=== PATIENT | female | born 1995 | race Caucasian/White ===

== ENCOUNTER 2020-03-05 18:00 | Emergency (ER) | payer OTHER, SELFPAY ==
--- NOTE | ~2020-03-05 | XR_ITS ---
EXAMINATION: XR knee RT 3V EXAM DATE: 03/05/2020 18:37 INDICATION: Right knee swelling. Rule out osteomyelitis. TECHNIQUE: Three projections of the right knee. There is no prior study for comparison. FINDINGS: No evidence osteochondral defect or joint body in the right knee joint. There are no bon y erosions identified. There are no acute fractures or dislocations identified. There is no subcutan eous gas. There is large amount of nonspecific joint fluid. This is most commonly sterile effusion. Possible u nderlying etiologies include reactive from arthritis, overuse, or trauma. Hemarthrosis and septic ef fusion are not radiographically excludable. Some surrounding subcutaneous edema. Please clinically co rrelate. There are no radiopaque foreign bodies. IMPRESSION: 1. Large amount of nonspecific right knee joint fluid. If septic joint is clinically suspected consid er aspiration. 2. No demineralization or other osseous change to suggest osteomyelitis. Reviewed, dictated and finalized at location A. IMPRESSION: 1. Large amount of nonspecific right knee joint fluid. If septic joint is clini kate suspected consider aspiration. 2. No demineralization or other osseous change to suggest osteomyelitis.
[2020-03-05 18:15] VITALS: BP 127/72; PULSE 103; RESP 20; TEMP 37.6; O2SAT 100
--- NOTE | 2020-03-05 18:28 | ED.GENADULT ---
HPI - General Adult General Chief complaint: Extremity Injury, Lower Stated complaint: right knee pain Time Seen by Provider: 03/05/20 18:22 Source: patient and RN notes reviewed Mode of arrival: ambulatory Limitations: no limitations History of Present Illness HPI narrative: Patient presents today complaining of swelling to the right knee x4 days. Denies any injury or trauma. States she had a similar episode a few weeks ago that resolved on its own. She does report some intermittent tingling to the lower leg, but none currently present. She currently rates her pain 7/10 and has been taking Tylenol and ibuprofen with some relief. Patient uses IV drugs and has been shooting into her lower leg veins. Last episode of IV drug use was approximately 3 weeks ago. MD complaint: Right knee swelling Related Data Home Medications Medication Instructions Recorded Confirmed albuterol sulfate [ProAir HFA] INHALATION 03/05/20 fenofibrate nanocrystallized mg PO 03/05/20 Allergies Allergy/AdvReac Type Severity Reaction Status Date / Time No Known Allergies Allergy Verified 03/10/19 15:53 Review of Systems Review of Systems: Narrative: CONSTITUTIONAL: Denies body aches, fever, chills, or sweats. EYES: Denies visual changes, redness, or discharge. ENT: Denies rhinorrhea, congestion, sore throat, or otalgia. CARDIOVASCULAR: Denies chest pain, palpitations, or edema. RESPIRATORY: Denies cough or dyspnea. GASTROINTESTINAL: Denies abdominal pain, nausea, vomiting, or diarrhea. GENITOURINARY: Denies dysuria or hematuria. SKIN: Denies rash, itching, or wounds. MUSCULOSKELETAL: Denies back pain, or myalgia.+ Right knee pain and swelling NEUROLOGIC: Denies headache, numbness, or weakness.+ Intermittent tingling to the right lower leg PSYCH: Denies depression or anxiety. PMFSH Past Medical History Medical History (Updated 03/05/20 @ 19:10 by Belinda Marshall, DANIELITO, ) Anxiety Bipolar disorder Depression Social History Social History (Updated 03/05/20 @ 18:31 by Belinda Marshall, DANIELITO, ) Substance use: current Substance use type: IV drugs Last use: 02/07/20 Exam Narrative: Exam Narrative: GENERAL: Chronically ill-appearing, well-nourished, and in no acute distress. HEAD: Normocephalic, atraumatic. EYES: EOMI. No redness or drainage. Conjunctivae normal. ENT: Mucous membranes pink and moist. NECK: Normal AROM. Supple. No lymphadenopathy. CHEST: No respiratory distress. EXTREMITIES: Right knee: Moderate swelling about the knee. Tenderness to the medial and lateral joint lines as well as the posterior knee. Distal sensation intact. Capillary refill normal. Pedal pulse normal. Pain increases with flexion, extension, and external rotation. No bony tenderness of the patella. No erythema or color change in the leg. No swelling in lower leg, ankle, or foot. No increased warmth to the leg or knee. SKIN: Warm, dry, no rash. Capillary refill normal. Normal skin turgor. Patient is covered in very large scabs. Legs and arms are covered in scars. NEURO: No focal deficits. Alert and oriented x3. Gait steady. PSYCH: Normal affect. No signs of depression or anxiety. Course Vital Signs Vital signs: Vital Signs Temperature 99.6 F 03/05/20 18:15 Pulse Rate 103 H 03/05/20 18:15 Respiratory Rate 20 03/05/20 18:15 Blood Pressure 127/72 03/05/20 18:15 Pulse Oximetry 100 03/05/20 18:15 Temperature 99.6 F 03/05/20 18:15 Pulse Rate 103 H 03/05/20 18:15 Respiratory Rate 20 03/05/20 18:15 Blood Pressure 127/72 03/05/20 18:15 Pulse Oximetry 100 03/05/20 18:15 Reviewed. Pt has been instructed to follow up with her PCP regarding her elevated blood pressure today. Medical Decision Making MDM Narrative Medical decision making narrative: As patient's knee is not erythematous or exhibiting increased warmth, I feel that the likelihood of her having a septic joint is quite low. She likely has a
== END 2020-03-05 19:12 | disposition home or self-care (01) ==
PROVIDERS: Emergency Provider Nurse Practitioner; PCP Emergency Medicine
DX: M25.461 Effusion, right knee (principal); F19.90 Other psychoactive substance use, unspecified, uncomplicated
CPT/HCPCS: 73562; 99213; G0463

== ENCOUNTER 2020-03-15 14:56 | Emergency (ER) | payer OTHER, SELFPAY ==
--- NOTE | ~2020-03-15 | US_ITS ---
EXAMINATION: US venous doppler LE RT DATE: 03/15/2020 15:48 INDICATION: Right leg pain and swelling TECHNIQUE: Robertson scale images without and with compression and Doppler images of the right lower extre mity veins were obtained. COMPARISON: None FINDINGS: The right common femoral vein, profunda femoral vein, femoral vein, popliteal vein, peronea l trunk, posterior tibial veins, and greater saphenous vein are patent. There is a possible ruptured Lyons's cyst in the proximal calf at the site of swelling. IMPRESSION: 1. Patent right lower extremity veins. No evidence of deep venous thrombosis. 2. Possible ruptured Lyons's cyst of the right calf at the site of swelling. Reviewed, dictated and finalized at location A.
[2020-03-15 15:20] VITALS: BP 142/89; PULSE 88; RESP 16; TEMP 36.3; O2SAT 100
--- NOTE | 2020-03-15 15:32 | ED.EXTPRO ---
HPI - Extremity Problem General Chief complaint: Extremity Problem,Nontraumatic Stated complaint: knee pain and swelling Time Seen by Provider: 03/15/20 15:00 Source: patient Mode of arrival: ambulatory Limitations: no limitations History of Present Illness HPI Narrative: Patient is a 24-year-old female who presents with right knee pain that she has been evaluated for went to urgent care a week ago had x-ray was found to have fluid on the joint given an Charlie wrap and notes that she noticed that the swelling now is extended down into the calf region noting aching pain around the knee denying any new pain injury or trauma has been taking ibuprofen and Tylenol for her symptoms and on arrival is in the room in no distress Related Data Home Medications Medication Instructions Recorded Confirmed albuterol sulfate INHALATION 03/15/20 fenofibrate nanocrystallized mg PO 03/15/20 Allergies Allergy/AdvReac Type Severity Reaction Status Date / Time No Known Allergies Allergy Verified 03/15/20 15:36 Review of Systems Review of Systems: All systems reviewed & are unremarkable except as noted in HPI and below PMFSH Past Medical History Medical History Anxiety Bipolar disorder Depression Social History Social History Substance use: current Substance use type: IV drugs Last use: 02/07/20 Exam Narrative: Exam Narrative: GENERAL: Well-appearing, well-nourished, and in no acute distress. HEAD: Normocephalic, atraumatic. EYES: PERRLA and EOMI. ENT: Nares clear, no rhinorrhea or epistaxis. Mucous membranes moist. EXTREMITIES: Swelling of the right knee joint without erythema fluctuance or other abnormal findings. Swelling down into the level of the calf with no tenderness SKIN: Warm, dry, no rash. NEURO: No focal deficits. Alert and oriented x3. Neurovascularly intact. Capillary refill less than 2-second PSYCH: Normal mood and affect. Course Course Emergency Course: Patient in the room aware of case findings treatment plan and diagnosis agreeing to follow-up as directed or to return if symptoms worsen or concerns MDM - Extremity (Nontraumatic) MDM Narrative Medical decision making narrative: Patients injury or pain is consistent with musculoskeletal etiology. No signs of neurological or vascular compromise on exam. Compartments and tisues are soft without signs of compartment syndrome. Pain is felt appropriate for further evaluation on an outpatient basis. Patient will be referred to orthopedic surgery Imaging Data Radiologist's impression: ITS Impressions Venous Doppler Study 03/15/20 15:49 IMPRESSION: 1. Patent right lower extremity veins. No evidence of deep venous thrombosis. 2. Possible ruptured Lyons's cyst of the right calf at the site of swelling. Discharge Plan Discharge Clinical Impression: Left leg pain Patient Disposition: Home, Self-Care Condition: Stable Instructions: Antibiotic Form, Leg Pain (ED) Additional Instructions: Wear Charlie wrap with limited weight on the affected leg until able to bear weight without pain. Ice and elevate extremity. Pain medication as needed and directed. Follow up with your doctor for further care in the next 7 days. Return if symptoms worsen or concerns or any increase in redness swelling pain fever over 100.5 or any loss of feeling or function in the extremity. Prescriptions: No Action albuterol sulfate 90 mcg/actuation HFA aerosol inhaler INHALATION RF: 0 fenofibrate nanocrystallized 145 mg tablet PO RF: 0 Follow-up/Referrals: Zach Trotter MD [Primary Care Provider] - Robles Villanueva MD [Physician] -
== END 2020-03-15 16:10 | disposition home or self-care (01) ==
PROVIDERS: Emergency Provider Emergency Medicine; PCP Emergency Medicine
DX: M79.604 Pain in right leg (principal); R93.89 Abnormal findings on diagnostic imaging of other specified body structures
CPT/HCPCS: 93971; 99284

== ENCOUNTER 2020-04-25 09:42 | Inpatient (IN) | payer OTHER, SELFPAY ==
[2020-04-25] VITALS (7 sets, daily range): BP systolic 97–124; BP diastolic 56–66; PULSE 86–108; RESP 18–20; TEMP 36.2–37.2; O2SAT 95–100; BMI 33.6
--- NOTE | ~2020-04-25 | MR_ITS ---
EXAMINATION: MR lumbar spine wo/w con DATE: 04/30/2020 07:22 INDICATION: Bacteremia and new pain extending to the right lower limb. TECHNIQUE: Magnetic resonance imaging (MRI) of the lumbar spine was performed without and with 17 mL Multihance intravenous contrast. Sequences included sagittal T2-weighted FSE, sagittal T2-weighted FS FSE, and sagittal and axial T1-weighted FSE. Postcontrast sequences included axial T2-weighted FSE a nd sagittal T1-weighted FS FSE. The patient's request the study was terminated prior to completion of the full complement of sagittal T1-weighted FS FSE images and prior to obtaining the postcontrast ax ial T2-weighted FS FSE images. COMPARISON: None FINDINGS: Straightening of the normal lumbar lordosis. Vertebral body heights are normal. Normal marrow signal . Mild disc height loss with annular fissure and right paracentral disc extrusion at L5-S1 which will be further detailed below. Remaining discs are normal. The conus medullaris terminates at L2. There is normal signal in the caudal spinal cord. Paravertebral soft tissues are unremarkable with no abnor mal paraspinal fluid collections. No abnormally enhancing lesions on the 4 obtained postcontrast sagi ttal images. The following disc levels are specifically discussed: T12-L1 through L4-L5: The disc does not extend beyond the endplate margin. There is negligible facet joint osteoarthritis. There is no neural foraminal stenosis. There is no central canal stenosis. L5-S1: Annular fissure with right paracentral disc extrusion which narrows the right lateral recesses and exerts mild mass effect upon the traversing right S1 nerve root. There is mild right and minimal left facet joint osteoarthritis. There is no neural foraminal stenosis. There is no central canal st enosis. IMPRESSION: 1. Annular fissure with right paracentral disc extrusion at L5-S1 which exerts mild mass effect upon the traversing right S1 nerve root. Correlate clinically for right-sided muscle weakness of plantar f lexion, sensory change of the lateral foot and small toe, and depressed ankle reflex. 2. No concerning paraspinal fluid collections or evidence of discitis or osteomyelitis. Reviewed, dictated and finalized at location A. IMPRESSION: 1. Annular fissure with right paracentral disc extrusion at L5-S1 which exerts mild mass effect upon the traversing right S1 nerve root. Correlate clinically for right-sided muscle weakness of plantar flexion, sensory change of the later al foot and small toe, and depressed ankle reflex. 2. No concerning paraspinal fluid collections or evidence of discitis or osteom yelitis.
--- NOTE | ~2020-04-25 | XR_ITS ---
EXAMINATION: XR chest 2V DATE: 04/25/2020 11:19 INDICATION: Right-sided chest pain TECHNIQUE: AP and lateral views of the chest are obtained. COMPARISON: None available FINDINGS: The lung volumes are low. There is a right perihilar opacity. There is no pleural effusion or pneumothorax. The cardiomediastinal silhouette is normal. The visualized bones and soft tissues ar e unremarkable. IMPRESSION: 1. Right perihilar opacity which could reflect right hilar vasculature or airspace opacity such as pn eumonia. Reviewed, dictated and finalized at location B. IMPRESSION: 1. Right perihilar opacity which could reflect right hilar vasculature or airsp liu opacity such as pneumonia.
--- NOTE | ~2020-04-25 | CT_ITS ---
EXAMINATION: CT lumbar spine wo con EXAM DATE: 04/27/2020 18:49 INDICATION: MRSA spine. TECHNIQUE: Spiral CT of the lumbar spine was performed without contrast. Axial, coronal and sagittal images were reviewed. The dose-length product (DLP) for this examination was 1092.40 mGy-cm. The exposure was tailored according to patient size (auto mA exposure control), and iterative reconstruct ion (ASIR) was used as additional dose reduction technique. Correlation is made to CT chest abdomen p efren from 04/25/2020. FINDINGS: No endplate erosive change or paraspinal fluid collection. The vertebral bodies are aligned in the AP dimension. Vertebral body and disc heights are well-maintained. Mild bilateral chronic sac roiliitis. There are no acute fractures identified. There are no osteoblastic or osteolytic lesions i dentified. Level by level evaluation: T12-L1: Disc does not extend beyond the endplate margin. Facet arthropathy: None. Neural foraminal stenosis: No stenosis. Central canal stenosis: No stenosis. L1-L2: Disc does not extend beyond the endplate margin. Facet arthropathy: None. Neural foraminal stenosis: No stenosis. Central canal stenosis: No stenosis. L2-L3: Disc does not extend beyond the endplate margin. Facet arthropathy: None. Neural foraminal stenosis: No stenosis. Central canal stenosis: No stenosis. L3-L4: There is a minimal diffuse disc bulge. Facet arthropathy: Minimal. Neural foraminal stenosis: No stenosis. Central canal stenosis: No stenosis. L4-L5: There is a mild diffuse disc bulge. Facet arthropathy: Mild. Neural foraminal stenosis: No stenosis. Central canal stenosis: No stenosis. L5-S1: There is a mild diffuse disc bulge. Facet arthropathy: Mild. Neural foraminal stenosis: No stenosis. Central canal stenosis: Mild. IMPRESSION: 1. No acute lumbar findings. 2. Mild lower lumbar spondylosis. Reviewed, dictated and finalized at location A.
--- NOTE | ~2020-04-25 | CT_ITS ---
EXAMINATION: CTA chest PE abdomen pel EXAM DATE: 04/25/2020 13:09 INDICATION: Elevated d-dimer, mid chest pain. Low back pain. Urinary tract infection. TECHNIQUE: Spiral CTA of the chest (pulmonary arteries) was performed with 100 cc Omnipaque 350 intr avenous contrast injection. Images were acquired during the pulmonary arterial phase. Coronal maxi mum intensity projection 3D-reconstructions were created by the technologist on dedicated workstation . Axial, coronal and sagittal reformatted images were reviewed. Spiral CT of the abdomen and pelvis was then performed with the same intravenous contrast injection. Axial, coronal and sagittal reform atted images were reviewed. The dose-length product (DLP) for this examination was 1298.65 mGy-cm. The exposure was tailored according to patient size (auto mA exposure control), and iterative recons truction (ASIR) was used as additional dose reduction technique. There is no prior study for compari son. FINDINGS: CHEST: Scattered peripheral predominant focal regions of acute airspace disease, mostly involving the dependent portions of the lungs but also some nondependent portions, suspicious for acute infectious process. Recommend considering/excluding COVID-19 Pulmonary arteries are well opacified and without intraluminal filling defects. No thoracic aortic dissection. There are no pleural or pericardial effusions. Tracheobronchial tree is patent. There is no mediastinal, hilar or axillary lymphaden opathy. There is no pneumothorax. Heart normal in size. No evidence of coronary arterial calcif ication. ABDOMEN PELVIS: The liver, spleen, adrenal glands and pancreas are unremarkable. Gallbladder is unre markable. No biliary obstruction. Portal and splenic veins are patent. Kidneys enhance symmetrical ly. There is no hydronephrosis. The uterus is anteverted and morphologically normal. Small amount of nonspecific fat stranding in the right side of the pelvis, and trace free pelvic fluid. The bladd er is unremarkable. There is no retroperitoneal or pelvic lymphadenopathy. The appendix is normal. The stomach and small bowel are unremarkable. There is expected amount of c olonic stool. No free intraperitoneal gas. The bones are unremarkable. IMPRESSION: 1. Some scattered ill-defined peripheral opacities most likely acute infectious process; recommend c onsidering/excluding COVID-19. 2. Small amount of nonspecific right pelvic fat stranding. Normal appendix and ovary. I discussed airspace disease with Yessy Ibarra PA-C at 04/25/2020 13:21 CDT. Reviewed, dictated and finalized at location A. IMPRESSION: 1. Some scattered ill-defined peripheral opacities most likely acute infectiou s process; recommend considering/excluding COVID-19. 2. Small amount of nonspecific right pelvic fat stranding. Normal appendix and ovary. I discussed airspace disease with Yessy Ibarra PA-C at 04/25/2020 13:21 CDT.
--- NOTE | 2020-04-25 10:23 | ECG_ITS ---
Measurements Intervals Delta Rate: 101 P: 50 NH: 145 QRS: 45 QRSD: 88 T: 30 QT: 348 QTc: 452 Interpretive Statements SINUS TACHYCARDIA BASELINE ARTIFACT- AVR, V1-V2 BORDERLINE ECG Electronically Signed On 04-25-2020 11:38:22 CDT by Zak Oquendo D.O.
--- NOTE | 2020-04-25 10:29 | ED.BACK ---
HPI - Back Pain/Injury General Chief Complaint: Back Pain/Injury <NATALIIA Bernal Last Filed: 04/25/20 15:04> Stated Complaint: lower back pain <NATALIIA Bernal Last Filed: 04/25/20 15:04> Time Seen by Provider: 04/25/20 10:11 <NATALIIA Bernal Last Filed: 04/25/20 15:04> Source: patient <NATALIIA Bernal Last Filed: 04/25/20 15:04> Mode of arrival: wheelchair <NATALIIA Bernal Last Filed: 04/25/20 15:04> Limitations: no limitations <NATALIIA Bernal Last Filed: 04/25/20 15:04> History of Present Illness HPI Narrative: This is a 24-year-old female that presents to the emergency department for low back pain since yesterday. No known injury or trauma. Reports the pain is sharp and radiates down the right leg. Worse with movement and relieved with rest. She took an anti-inflammatory at home with little relief. Also reports since this morning she has been having right upper quadrant abdominal/right sided lower chest pain. Denies fever, nausea, vomiting, dysuria, hematuria, saddle anesthesia, bowel/bladder incontinence, or numbness. <NATALIIA Bernal Last Filed: 04/25/20 15:04> Related Data Home Medications: Home Medications Medication Instructions Recorded Confirmed albuterol sulfate INHALATION 03/15/20 fenofibrate nanocrystallized 145 mg PO 04/25/20 <NATALIIA Bernal Last Filed: 04/25/20 15:04> Allergies/Adverse Reactions: Allergies Allergy/AdvReac Type Severity Reaction Status Date / Time No Known Allergies Allergy Verified 04/25/20 09:48 <NATALIIA Bernal Last Filed: 04/25/20 15:04> Review of Systems Review of Systems: Narrative: CONSTITUTIONAL: Denies fever CARDIOVASCULAR: Reports chest pain RESPIRATORY: Denies cough or dyspnea. GASTROINTESTINAL: Reports abdominal pain. Denies nausea, vomiting, or diarrhea. GENITOURINARY: Denies dysuria or hematuria. SKIN: Denies rash MUSCULOSKELETAL: Reports back pain, joint pain, and myalgia. NEUROLOGIC: Denies numbness, or weakness. <Yessy Ibarra PA-C - Last Filed: 04/25/20 15:04> All systems reviewed & are unremarkable except as noted in HPI and below <Yessy Ibarra PA-C - Last Filed: 04/25/20 15:04> PMFSH Past Medical History Medical History: Medical History (Updated 04/25/20 @ 15:04 by Yessy Ibarra PA-C) Anxiety Asthma Bipolar disorder Bleeding gums Depression Drug dependence GERD (gastroesophageal reflux disease) Headache High cholesterol Nausea & vomiting Sleep disorder <Yessy Ibarra PA-C - Last Filed: 04/25/20 15:04> Family History Family History: Family History (Updated 04/02/20 @ 15:34 by Nathaly Sanchez, RT(R)) Other Arthritis Diabetes mellitus Nerve disorder <Yessy Ibarra PA-C - Last Filed: 04/25/20 15:04> Social History Social History: Social History (Updated 04/02/20 @ 15:35 by Nathaly Sanchez, RT(R)) Smoking packs per day: 1.25 Smoking cigarettes per day: 25.0 Years smoked: 12 Smoking pack-years: 15.00 Smoking status: Current every day smoker Alcohol intake: current Substance use: current Substance use type: IV drugs Last use: 02/07/20 <Yessy Ibarra PA-C - Last Filed: 04/25/20 15:04> Exam Narrative: Exam Narrative: GENERAL: Well-appearing, well-nourished, and in no acute distress. HEAD: Normocephalic, atraumatic. EYES: PERRLA and EOMI. ENT: Nares clear, no rhinorrhea or epistaxis. Mucous membranes moist. Oropharynx without tonsillar hypertrophy exudate or other lesions. Bilateral TMs pearly quintana non-bulging NECK: Supple. No adenopathy or masses. CHEST: Clear to auscultation. No respiratory distress. No wheezes rales or rhonchi HEART: Regular rate and rhythm. No murmur heard. Normal peripheral pulses. ABDOMEN: Soft, nondistended, normal active bowel sounds. Mild tenderness to palpation of the right upper quadrant, without guarding BACK:
[2020-04-25] MEDS: SODIUM CHLORIDE 0.9% IV 1,000 ML 999 ML IV CONT (10:39)
[2020-04-25 10:52] LABS: Basophils Absolute Auto 0.1 K/mm3 (0.0-0.1); Basophils Percent Auto 0.4 % (0.2-1.2); Eosinophils Absolute Auto 0.1 K/mm3 (0-0.3); Eosinophils Percent Auto 0.3 % (0-4.4); Hematocrit 34.3 % (37.0-47.0); Hemoglobin 10.9 g/dL (12.0-15.0); Immature Granulocyte Absolute 0.08 K/mm3 (0.00-0.031); Immature Granulocyte Percent A 0.5 % (0-0.5); Lymphocytes Absolute Auto 1.34 K/mm3 (0.9-3.2); Mean Corpuscular HGB Conc 31.8 g/dl (32-36); Mean Corpuscular Hemoglobin 25.1 pg (26-34); Mean Corpuscular Volume 78.9 fl (80-100); Mean Platelet Volume 11.1 fl (7.4-10.4); Monocytes Percent Auto 6.6 % (2.6-8.5); Neutrophils Absolute Auto 12.4 K/mm3 (1.3-6.7); Neutrophils Percent Auto 83.2 % (45.5-73.1); Platelet Count Result 249 k/mm3 (150-375); Red Blood Count 4.35 M/mm3 (4.2-5.4); Red Cell Distribution Width 16.2 % (11.5-14.5); White Blood Count 14.9 K/mm3 (4.5-10.0)
[2020-04-25 11:00] LABS: Add Urine Microscopic? YES; Appearance Urine Clear (Clear); Bilirubin Urine 2+ (Negative); Blood Urine Negative (Negative); Color Urine Yellow (Yellow); Glucose Urine UA Negative (Negative); Ketones Urine Negative (Negative); Leukocyte Esterase Ur Negative LEU/UL (Negative); Mucus Urine Rare /lpf; Nitrate Urine Negative (Negative); Protein Urine 1+ mg/dL (Negative); Specific Grav Ur 1.027 (1.001-1.035); Squamous Epithelial Cell Urine Many /hpf (Few); WBC Urine 21-30 /hpf
[2020-04-25 11:06] LABS: INR 1.2; Prothrombin Time 14.7 Seconds (11.1-14.7)
[2020-04-25 11:07] LABS: Partial Thromboplastin Time 30.5 SECONDS (22.3-36.8)
[2020-04-25 11:09] LABS: D Dimer 2.99 ug/mL (<0.48)
[2020-04-25 11:10] LABS: Alanine Aminotransferase 15 U/L (4-35); Albumin Level 3.6 g/dL (3.5-5.1); Alkaline Phosphatase 206 U/L (38-126); Anion Gap 12.4 mmol/L (7-16); Aspartate Amino Transferase 29 U/L (14-36); Bilirubin,Total 0.8 mg/dL (0.2-1.3); Blood Urea Nitrogen 11 mg/dL (7-17); Calcium 8.6 mg/dL (8.4-10.2); Carbon Dioxide 26 mmol/L (22-30); Chloride 99 mmol/L (98-107); Estimated CRCL calculation 110 ml/min; Estimated Glomerular Filt Rate > 60; Glucose 89 mg/dL (65-105); Potassium 3.4 mmol/L (3.4-5.0); Sodium 134 mmol/L (137-145)
[2020-04-25 11:14] LABS: Lipase < 10 U/L (23-300)
[2020-04-25 11:16] LABS: Lactic Acid Reflex 0.9 mmol/L (0.7-2.1)
[2020-04-25 11:17] LABS: Amphetamine Screen Urine Positive (Negative); Barbiturate Screen Urine Negative (Negative); Benzodiazepines Screen Urine Negative (Negative); Cannabinoid Screen Urine Positive (Negative); Cocaine Screen Urine Negative (Negative); Methadone Screen Urine Negative (Negative); Opiate Screen Urine Negative (Negative); Phencyclidine Screen Urine Negative (Negative)
[2020-04-25 11:20] LABS: Troponin I < 0.012 ng/mL (0.000-0.034)
[2020-04-25 11:59] LABS: CRP 36.5 mg/dL (<1.0)
--- NOTE | 2020-04-25 12:14 | PC.NURSE ---
Attempting larger IV for CT. unsuccessful x3
--- NOTE | 2020-04-25 14:04 | PC.NURSE ---
cable technician attempting to collect blood cultures. Unsuccessful
--- NOTE | 2020-04-25 17:00 | PC.NURSE ---
This patient, Edward Eaton, was admitted to 3 [facility] Surg Room 328-01. Patient/family oriented to hospital policies and general routines including ID bracelet, bed and alarms, visiting hours, pain management, procedures, bathroom and other care routines, personal items, smoking policy, room service/diet, and visiting hours. Valuables list has been completed. Information on how to activate the Rapid Response Team has been discussed. Patient/Family are encouraged to report perceived risks to care and to ask questions if they do not understand what they are told or what they should do.
--- NOTE | 2020-04-25 23:55 | PM.IMHP ---
H&P: HPI History of Present Illness Chief complaint: Pneumonia Narrative: Edward Eaton is a 24 year old female who has a hx of drug abuse. The patient stated that she has not used meth in one month. month. She has multiple murillo on her hands and legs.The patient came to the emergency room and complained And also lower back pain. She has not had any known injury or trauma. The patient has complained of sharp pain that radiates down right leg. It is relieved with rest. She took an anti-inflammatory and home without any relief. She had no fever cough or chills no nausea no vomiting no diarrhea. She has had problems with her right knee and right foot that was swollen in the past and she has seen orthopedic for this discomfort in the past and she was told to use rice. Rest elevate ice and NSAIDs. She does have anxiety disorder. She was found to be positive for marijuana and methamphetamines. Patient admits to shooting up meth. She has had a skin issue for quite some time. She said she had antibiotics in the past for her skin issues. She has been to the emergency room where she has complained of left leg pain back in February. The patient had the chest abdominal pelvis CT a which was read as small scattered ill-defined peripheral opacities most likely acute infectious process recommend considering excluding covid 19. Small amount of nonspecific right pelvic fat stranding normal appendix and ovary. the patient was given IV Tylenol, Levaquin, Rocephin, a Zithromax and, vancomycin, and volume in the emergency room. The patient was tested for covid 19 and placed in isolation. I have spent at least 1 hour with this patient. Date of service is 04/25/2020 Review of Systems Review of Systems: All systems reviewed & are unremarkable except as noted in HPI and below Constitutional: Constitutional: Reports as per HPI and Reports no additional constitutional complaints Eyes: Eyes: Reports as per HPI and Reports no additional eye complaints ENT: Reports system reviewed and no additional complaints, except as documented and Reports Normal hearing present Cardiovascular: Cardiovascular: Reports no additional cardiovascular complaints Respiratory: Respiratory: Reports no additional respiratory complaints and Reports no additional respiratory complaints Gastrointestinal: Gastrointestinal: Reports as per HPI and Reports no additional gastrointestinal complaints Musculoskeletal: Musculoskeletal: Reports no additional musculoskeletal complaints Integumentary/Breasts: Skin/Breast: Reports system reviewed and no additional complaints, except as docu and Reports as per HPI Neurologic: Reports system reviewed and no additional complaints, except as documented, Reports as per HPI and Reports Normal hearing present Psychiatric: Psychiatric: Reports no additional psychiatric complaints and Reports as per HPI Endocrine: Endocrine: Reports no additional endocrine complaints Hematologic/Lymphatic: Hematologic/Lymphatic: Reports no additional hematologic/lymphatic complaints Allergic/Immunologic: Allergic/Immunologic: Reports no additional allergic/immunologic complaints [facility] Past Medical History Medical History (Updated 04/26/20 @ 00:13 by Graciela Ragland NP) Anxiety Asthma Bipolar disorder Bleeding gums Depression Drug dependence GERD (gastroesophageal reflux disease) Headache High cholesterol IV drug user methamphetamines Nausea & vomiting Sleep disorder Surgical History Surgical History (Updated 04/26/20 @ 00:13 by Graciela Ragland NP) No pertinent past surgical history Family History Family History Grandparent Arthritis Diabetes mellitus Nerve disorder Mother Nerve disorder Accidental fentanyl overdose she from overdose Social History Social History (Updated 04/26/20 @ 00:15 by Graciela Ragland NP) Social History: the patient stated that she last sh
[2020-04-26] VITALS (10 sets, daily range): BP systolic 105–120; BP diastolic 63–71; PULSE 99–113; RESP 16–20; TEMP 36.6–37.4; O2SAT 96–99
[2020-04-26 02:02] LABS: SARS-CoV-2 RNA PCR Negative
[2020-04-26] MEDS: FENOFIBRATE NANOCRYSTALLIZED 145 MG TABLET PO (10:19)
--- NOTE | 2020-04-26 16:34 | PM.IMPN ---
Progress Note: A&P Assessment and Plan (1) Depression: Code(s): F32.9 - Major depressive disorder, single episode, unspecified Status: Chronic (2) Anxiety: Code(s): F41.9 - Anxiety disorder, unspecified Status: Chronic Assessment and Plan: P.r.n. Ativan. (3) Asthma: Code(s): J45.909 - Unspecified asthma, uncomplicated Status: Chronic Assessment and Plan: Continue with her albuterol inhalers. (4) High cholesterol: Code(s): E78.00 - Pure hypercholesterolemia, unspecified Status: Chronic Assessment and Plan: Continue with her fenofibrate. (5) IV drug user: Code(s): F19.90 - Other psychoactive substance use, unspecified, uncomplicated Status: Chronic Assessment and Plan: Patient was found to be positive for methamphetamines. (6) Pneumonia: Qualifiers: Laterality: bilateral Lung location: lower lobe of lung Pneumonia type: due to unspecified organism Qualified Code(s): J18.9 - Pneumonia, unspecified organism Code(s): J18.9 - Pneumonia, unspecified organism Status: Acute Assessment and Plan: Patient is a IV drug user. She was started on a Zithromax and Rocephin and vancomycin. BC are positive. Subjective Date/time seen: 04/26/20 16:34 Interval history: mague Eaton is a 24 year old female who has a hx of drug abuse. The patient stated that she has not used meth in one month. Found to be covid negative. Admitted with pneumonia, BC are positive for Gram positive cocci.pt is in a deep sleep in the room, difficult to fully exam Review of Systems Review of Systems: ROS unobtainable: Yes unobtainable due to medical condition Exam Narrative: Exam Narrative: Pt is in a deep sleep on RA comfortable younger lady Objective Data Vital Signs Vital Signs: Vital Signs - 24 hr 04/25/20 18:00 04/25/20 20:00 04/25/20 22:00 Temperature 36.6 C 37.2 C Pulse Rate 94 95 104 H Respiratory Rate 20 20 Blood Pressure 118/64 100/56 L Pulse Oximetry 95 98 04/26/20 00:00 04/26/20 02:00 04/26/20 04:00 Temperature 37.4 C Pulse Rate 110 H 108 H 107 H Respiratory Rate 16 Blood Pressure 105/63 Pulse Oximetry 96 04/26/20 06:00 04/26/20 08:00 04/26/20 12:00 Temperature 37.3 C Pulse Rate 113 H 102 H 99 Respiratory Rate 20 Blood Pressure 120/71 Pulse Oximetry 97 04/26/20 14:00 Temperature 36.6 C Pulse Rate 102 H Respiratory Rate 18 Blood Pressure 112/69 Pulse Oximetry 99 Intake/Output Intake/Output: Intake & Output 04/23/20 04/24/20 04/25/20 04/26/20 23:59 23:59 23:59 23:59 Intake Total 1950 2390 Output Total 400 1500 Balance 1550 890 Meds/Results Medications: Active Medications Generic Name Dose Route Start Last Admin Trade Name Freq PRN Reason Stop Dose Admin Hydrocodone Bitart/Acetaminophen 1 tab 04/26/20 10:15 [place] 5-325 Mg PO Q6H PRN Pain Rated 4-6 Albuterol 2 puff 04/25/20 23:50 Proventil Hfa INHALATION PRN PRN Shortness Of Breath Fenofibrate 145 mg 04/26/20 09:00 04/26/20 10:19 Tricor PO 145 mg DAILY ROSENDA Administration Ceftriaxone Sodium/Dextrose 1 gm in 50 mls @ 100 mls/hr 04/26/20 14:00 04/26/20 13:52 Rocephin 1 Gm/D5w 50 Ml IVPB Infused Q24H ROSENDA Infusion Azithromycin 500 mg in 250 mls @ 250 mls/hr 04/26/20 14:00 04/26/20 14:58 Zithromax IVPB Infused Q24H ROSENDA Infusion Vancomycin HCl 1,250 mg in 250 mls @ 200 mls/hr 04/26/20 02:00 04/26/20 15:04 Vancomycin 1,250 Mg/D5w 250 Ml IVPB 200 mls/hr Q12H ROSENDA Administration Lorazepam 0.5 mg 04/25/20 23:50 04/26/20 10:19 Ativan Inj IV PUSH 0.5 mg Q6H PRN Administration Anxiety Lorazepam 0.5 mg 04/26/20 10:14 Ativan Tablet PO Q6H PRN Anxiety Radiology Results: ITS Impressions Chest X-Ray 04/25/20 11:22 IMPRESSION: 1. Right perihilar opacity which could re
[2020-04-26] MEDS: NICOTINE (*PBKC) 21 MG PATCH 1 PATCH TRANSDERM (23:00)
[2020-04-27] VITALS (9 sets, daily range): BP systolic 120–125; BP diastolic 70–90; PULSE 99–110; RESP 16–18; TEMP 36.1–36.9; O2SAT 95–99
[2020-04-27 01:06] LABS: Basophils Percent Auto 0.2 % (0.2-1.2); Eosinophils Absolute Auto 0.1 K/mm3 (0-0.3); Eosinophils Percent Auto 0.6 % (0-4.4); Hematocrit 31.2 % (37.0-47.0); Hemoglobin 9.9 g/dL (12.0-15.0); Immature Granulocyte Absolute 0.13 K/mm3 (0.00-0.031); Immature Granulocyte Percent A 0.9 % (0-0.5); Lymphocytes Absolute Auto 2.63 K/mm3 (0.9-3.2); Lymphocytes Percent Auto 18.6 % (18.3-44.2); Mean Corpuscular HGB Conc 31.7 g/dl (32-36); Mean Corpuscular Hemoglobin 24.9 pg (26-34); Mean Corpuscular Volume 78.6 fl (80-100); Mean Platelet Volume 10.9 fl (7.4-10.4); Monocytes Absolute Auto 0.7 K/mm3 (0.1-0.6); Monocytes Percent Auto 5.2 % (2.6-8.5); Neutrophils Absolute Auto 10.5 K/mm3 (1.3-6.7); Neutrophils Percent Auto 74.5 % (45.5-73.1); Platelet Count Result 324 k/mm3 (150-375); Red Blood Count 3.97 M/mm3 (4.2-5.4); Red Cell Distribution Width 16.1 % (11.5-14.5); White Blood Count 14.1 K/mm3 (4.5-10.0)
[2020-04-27 02:22] LABS: Alanine Aminotransferase 9 U/L (4-35); Albumin Level 2.9 g/dL (3.5-5.1); Alkaline Phosphatase 161 U/L (38-126); Anion Gap 11.4 mmol/L (7-16); Aspartate Amino Transferase 19 U/L (14-36); Bilirubin,Total 0.4 mg/dL (0.2-1.3); Blood Urea Nitrogen 7 mg/dL (7-17); Calcium 8.3 mg/dL (8.4-10.2); Carbon Dioxide 28 mmol/L (22-30); Chloride 100 mmol/L (98-107); Estimated CRCL calculation 152 ml/min; Estimated Glomerular Filt Rate > 60; Glucose 88 mg/dL (65-105); Magnesium 2.2 mg/dL (1.6-2.3); Potassium 3.4 mmol/L (3.4-5.0); Sodium 136 mmol/L (137-145)
[2020-04-27 02:45] LABS: Thyroid Stimulating Hormone Reflex 0.965 uIU/mL (0.465-4.68)
[2020-04-27] MEDS: LORazepam 0.5 MG TABLET PO ×2 (05:40→18:31)
[2020-04-27 06:50] LABS: Lactic Acid 0.5 mmol/L (0.7-2.1)
[2020-04-27 06:55] LABS: D Dimer 2.69 ug/mL (<0.48)
[2020-04-27] MEDS: FENOFIBRATE NANOCRYSTALLIZED 145 MG TABLET PO (08:40)
--- NOTE | 2020-04-27 15:47 | PM.IMPN ---
Progress Note: A&P Assessment and Plan (1) Depression: Code(s): F32.9 - Major depressive disorder, single episode, unspecified Status: Chronic (2) Anxiety: Code(s): F41.9 - Anxiety disorder, unspecified Status: Chronic Assessment and Plan: P.r.n. Ativan. (3) Asthma: Code(s): J45.909 - Unspecified asthma, uncomplicated Status: Chronic Assessment and Plan: Continue with her albuterol inhalers. (4) High cholesterol: Code(s): E78.00 - Pure hypercholesterolemia, unspecified Status: Chronic Assessment and Plan: Continue with her fenofibrate. (5) IV drug user: Code(s): F19.90 - Other psychoactive substance use, unspecified, uncomplicated Status: Chronic Assessment and Plan: Patient was found to be positive for methamphetamines. (6) Pneumonia: Qualifiers: Laterality: bilateral Lung location: lower lobe of lung Pneumonia type: due to unspecified organism Qualified Code(s): J18.9 - Pneumonia, unspecified organism Code(s): J18.9 - Pneumonia, unspecified organism Status: Acute Assessment and Plan: Patient is a IV drug user. She was started on a Zithromax and Rocephin and vancomycin. BC are positive for MRSA Subjective Date/time seen: 04/27/20 15:47 Interval history: mague Eaton is a 24 year old female who has a hx of drug abuse. The patient stated that she has not used meth in one month. Found to be covid negative. Admitted with pneumonia, BC are positive for Gram positive cocci.positive for MRSA Exam Narrative: Exam Narrative: Pt is in a deep sleep on RA comfortable younger lady Objective Data Vital Signs Vital Signs: Vital Signs - 24 hr 04/26/20 16:00 04/26/20 20:00 04/26/20 22:00 Temperature 36.6 C Pulse Rate 103 H 100 103 H Respiratory Rate 18 Blood Pressure 115/65 Pulse Oximetry 98 04/27/20 00:00 04/27/20 04:00 04/27/20 06:00 Temperature 36.1 C L Pulse Rate 101 H 99 105 H Respiratory Rate 18 Blood Pressure 120/70 Pulse Oximetry 95 04/27/20 08:00 04/27/20 12:00 04/27/20 14:00 Temperature 36.4 C L Pulse Rate 100 103 H 101 H Respiratory Rate 18 Blood Pressure 120/76 Pulse Oximetry 99 Intake/Output Intake/Output: Intake & Output 04/24/20 04/25/20 04/26/20 04/27/20 23:59 23:59 23:59 23:59 Intake Total 1950 4740 1570 Output Total 400 2450 1800 Balance 1550 2290 -230 Meds/Results Medications: Active Medications Generic Name Dose Route Start Last Admin Trade Name Freq PRN Reason Stop Dose Admin Hydrocodone Bitart/Acetaminophen 1 tab 04/26/20 10:15 04/27/20 08:40 [place] 5-325 Mg PO 1 tab Q6H PRN Administration Pain Rated 4-6 Albuterol 2 puff 04/25/20 23:50 Proventil Hfa INHALATION PRN PRN Shortness Of Breath Fenofibrate 145 mg 04/26/20 09:00 04/27/20 08:40 Tricor PO 145 mg DAILY ROSENDA Administration Ceftriaxone Sodium/Dextrose 1 gm in 50 mls @ 100 mls/hr 04/26/20 14:00 04/27/20 13:55 Rocephin 1 Gm/D5w 50 Ml IVPB 100 mls/hr Q24H ROSENDA Administration Azithromycin 500 mg in 250 mls @ 250 mls/hr 04/26/20 14:00 04/27/20 14:33 Zithromax IVPB 250 mls/hr Q24H ROSENDA Administration Vancomycin HCl 1,500 mg in 500 mls @ 333.333 mls/hr 04/27/20 04:00 04/27/20 04:45 Vancomycin 1,500 Mg/D5w 500 Ml IVPB Infused Q12H ROSENDA Infusion Lorazepam 0.5 mg 04/25/20 23:50 04/26/20 10:19 Ativan Inj IV PUSH 0.5 mg Q6H PRN Administration Anxiety Lorazepam 0.5 mg 04/26/20 10:14 04/27/20 05:40 Ativan Tablet PO 0.5 mg Q6H PRN Administration Anxiety Nicotine 1 patch 04/26/20 21:12 04/26/20 23:00 Nicoderm Cq 21 Mg TRANSDERM 1 patch HS ROSENDA Administration Radiology Results: ITS Impressions Chest X-Ray 04/25/20 11:22 IMPRESSION: 1. Right perihilar opacity which could reflect right hilar vasculature or airspace opacity
[2020-04-27] MEDS: NICOTINE (*PBKC) 21 MG PATCH 1 PATCH TRANSDERM (21:30)
[2020-04-28] VITALS (8 sets, daily range): BP systolic 115–134; BP diastolic 67–84; PULSE 93–105; RESP 18–20; TEMP 36.8–37.7; O2SAT 94–97
[2020-04-28] MEDS: LORazepam 0.5 MG TABLET PO ×3 (00:37→19:58)
[2020-04-28] MEDS: FENOFIBRATE NANOCRYSTALLIZED 145 MG TABLET PO (10:12)
--- NOTE | 2020-04-28 15:30 | PC.NURSE ---
Patient co IV burning. IV site slightly red, no swelling noted. Rate slowed to 150ml/hr. Patient reports the burning has subsided. Patient instructed to notify staff if it begins to burn again.
--- NOTE | 2020-04-28 15:40 | PC.NURSE ---
Patient co increased burning to IV site. Infusion stopped, IV flushed. primary grade teacher notified. Infusion restarted at 50ml/hr. Patient denies any burning at this time. Redness is no longer present. Will continue to monitor.
[2020-04-28 15:49] LABS: Vancomycin Trough 8.9 ug/mL (10.0-20.0)
--- NOTE | 2020-04-28 15:55 | PM.IMPN ---
Progress Note: A&P Assessment and Plan (1) Depression: Code(s): F32.9 - Major depressive disorder, single episode, unspecified Status: Chronic (2) Anxiety: Code(s): F41.9 - Anxiety disorder, unspecified Status: Chronic Assessment and Plan: P.r.n. Ativan. (3) Asthma: Code(s): J45.909 - Unspecified asthma, uncomplicated Status: Chronic Assessment and Plan: Continue with her albuterol inhalers. (4) High cholesterol: Code(s): E78.00 - Pure hypercholesterolemia, unspecified Status: Chronic Assessment and Plan: Continue with her fenofibrate. (5) IV drug user: Code(s): F19.90 - Other psychoactive substance use, unspecified, uncomplicated Status: Chronic Assessment and Plan: Patient was found to be positive for methamphetamines. (6) Pneumonia: Qualifiers: Laterality: bilateral Lung location: lower lobe of lung Pneumonia type: due to unspecified organism Qualified Code(s): J18.9 - Pneumonia, unspecified organism Code(s): J18.9 - Pneumonia, unspecified organism Status: Acute Assessment and Plan: Patient is a IV drug user. She was started on a Zithromax and Rocephin and vancomycin. BC are positive for MRSA Consult ID tomorrow, low grade fevers, wcc high BC is positive for MRSA, UC positive for MRSA complains of BAck pain CT back - NAD likely refered pain for UTI or pneumonia Subjective Date/time seen: 04/28/20 15:55 Interval history: Edward Eaton is a 24 year old female who has a hx of drug abuse. HIstory of meth.Found to be covid negative. Admitted with pneumonia, BC are positive for Gram positive cocci.positive for MRSA Pt is off oxygen feels better wet cough Exam Const: General: alert and other (younger female unkempt ) Orientation/consciousness: oriented to person, oriented to place, oriented to time and patient oriented x3 Chest: Chest palpation & inspection: normal inspection of the chest Resp: Effort & Inspection: normal respiratory effort Auscultation: clear to auscultation bilaterally Percussion: percussion normal Cardio: Palpation: normal PMI Rate: regular rate Rhythm: regular rhythm Heart sounds: S1 normal heart sound present and S2 normal heart sound present Peripheral pulses: Peripheral pulses 2+ throughout GI: Inspection: normal to inspection Auscultation: normal bowel sounds Back/Spine/Pelvis: Other: L/S tenderness Skin: Other: She has multiple scars on her arms and legs Neuro: General: oriented to person, oriented to place, oriented to time and patient oriented x3 Cranial nerves: Yes Equal, round and reactive pupils present and Yes Normal hearing present Cognition (Neuro): normal cognition Speech: normal speech Gait exam (Neuro): Normal gait present Motor exam (neuro): 5/5 motor strength present throughout Sensory Exam: normal sensation Objective Data Vital Signs Vital Signs: Vital Signs - 24 hr 04/27/20 16:00 04/27/20 20:00 04/27/20 22:00 Temperature 36.9 C Pulse Rate 110 H 109 H 108 H Respiratory Rate 16 Blood Pressure 125/90 Pulse Oximetry 96 04/28/20 00:00 04/28/20 04:00 04/28/20 06:00 Temperature 36.8 C Pulse Rate 101 H 99 101 H Respiratory Rate 18 Blood Pressure 115/67 Pulse Oximetry 97 04/28/20 08:00 04/28/20 12:00 04/28/20 14:00 Temperature 37.7 C H Pulse Rate 93 101 H 97 Respiratory Rate 20 Blood Pressure 134/82 Pulse Oximetry 94 Intake/Output Intake/Output: Intake & Output 04/25/20 04/26/20 04/27/20 04/28/20 23:59 23:59 23:59 23:59 Intake Total 1950 4740 2620 1660 Output Total 400 2450 2400 2000 Balance 1550 2290 220 -340 Meds/Results Medications: Active Medications Generic Name Dose Route Start Last Admin Trade Name Freq PRN Reason Stop Dose Admin Hydrocodone Bitart/Acetaminophen 1 tab 04/26/20 10:15 04/28/20 15:25 [place] 5-325 Mg PO 1 tab Q6H PRN Administrat
[2020-04-28] MEDS: LIDOCAINE 5% PATCH 1 PATCH TRANSDERM (17:23)
[2020-04-28] MEDS: NICOTINE (*PBKC) 21 MG PATCH 1 PATCH TRANSDERM (20:33)
[2020-04-29] VITALS (9 sets, daily range): BP systolic 117–129; BP diastolic 75–96; PULSE 85–106; RESP 18–20; TEMP 36.7–36.9; O2SAT 95–98
--- NOTE | 2020-04-29 | ECHO_ITS ---
Patient Info Name: Edward Eaton Age: 24 years : 1995 Gender: Female Ht: 63 in Wt: 190 lbs BSA: 1.99 m2 HR: 104 bpm BP: 129 / 80 mmHg Heart Rhythm: Sinus Rhythm Technical Quality: Good Exam Date: 04/29/2020 1:44 PM Exam Location: [facility] Patient Status: Inpatient Admit Date: 04/29/2020 Staff Ordering Physician: Perico Ramos MD Patient Support Representative: Piper Damon RDCS Attending Provider: Perico Ramos MD Exam Type: CA echo doppler color flow Study Info Indications - bacteremia, IVDA Complete two-dimensional, color flow and Doppler transthoracic echocardiogram is performed. Summary 1. Left ventricular chamber dimension is normal. 2. Left ventricular systolic function is normal, estimated at 60-65%. 3. Left atrial chamber dimension is normal. 4. No valvular vegetations were visualized. Left Ventricle Left ventricular chamber dimension is normal. Left ventricular systolic function is normal, estimated at 60-65%. The left ventricular diastolic function is normal. Right Ventricle Right ventricular chamber dimension is normal. Left Atria Left atrial chamber dimension is normal. Right Atria Right atrial chamber dimension is normal. Aortic Valve The aortic valve is normal. Pulmonic Valve The pulmonic valve is not well visualized. Mitral Valve The mitral valve has normal leaflets. Tricuspid Valve The tricuspid valve leaflets are normal. Pericardium/Pleural The pericardium appears normal. Aorta The aortic root size at the sinus of Valsalva is normal. Left Ventricular Outflow Tract Name Value Normal LVOT 2D LVOT Diameter 1.9 cm LVOT Doppler LVOT Peak Gradient 6 mmHg LVOT Mean Gradient 4 mmHg LVOT VTI 23 cm LVOT VTI/AV VTI Ratio 0.8 LVOT Stroke Volume 68 ml LVOT CO 7.3 l/min LVOT CI 3.7 l/min/m2 Pulmonic Valve Name Value Normal RVOT Doppler RVOT Peak Gradient 4 mmHg PV Doppler PV Peak Gradient 8 mmHg Mitral Valve Name Value Normal MV Doppler MV Decel [place] 852 cm/s2 MV PHT 34 ms MV Area (PHT) 6.5 cm2 4.0-5.0 MV Diastolic Function MV E Peak Velocity
[2020-04-29 07:07] LABS: Alanine Aminotransferase 16 U/L (4-35); Albumin Level 3.2 g/dL (3.5-5.1); Alkaline Phosphatase 113 U/L (38-126); Anion Gap 13.4 mmol/L (7-16); Aspartate Amino Transferase 29 U/L (14-36); Bilirubin,Total 0.2 mg/dL (0.2-1.3); Blood Urea Nitrogen 10 mg/dL (7-17); Calcium 9.2 mg/dL (8.4-10.2); Carbon Dioxide 27 mmol/L (22-30); Chloride 103 mmol/L (98-107); Estimated CRCL calculation 129 ml/min; Estimated Glomerular Filt Rate > 60; Glucose 98 mg/dL (65-105); Potassium 3.4 mmol/L (3.4-5.0); Sodium 140 mmol/L (137-145)
[2020-04-29] MEDS: POTASSIUM CHLORIDE 20 MEQ TABLET PO (08:36)
[2020-04-29] MEDS: FENOFIBRATE NANOCRYSTALLIZED 145 MG TABLET PO (08:37)
[2020-04-29] MEDS: LIDOCAINE 5% PATCH 1 PATCH TRANSDERM (08:37)
--- NOTE | 2020-04-29 10:52 | WPDINFPN2 ---
Progress Note: A&P Assessment and Plan (1) MRSA (methicillin resistant Staphylococcus aureus) septicemia: Code(s): A41.02 - Sepsis due to Methicillin resistant Staphylococcus aureus Status: Acute Assessment and Plan: 1. MRSA bacteremia 2. IVDA REC Vanc monotherapy #5. Not a candidate for home IV. Subjective Date/time seen: 04/29/20 10:52 Objective Data Vital Signs Vital Signs: Vital Signs - 24 hr 04/28/20 12:00 04/28/20 14:00 04/28/20 16:00 Temperature 37.7 C H Pulse Rate 101 H 97 105 H Respiratory Rate 20 Blood Pressure 134/82 Pulse Oximetry 94 04/28/20 22:00 04/29/20 00:00 04/29/20 04:00 Temperature 37.4 C Pulse Rate 98 90 85 Respiratory Rate 18 Blood Pressure 132/84 Pulse Oximetry 95 04/29/20 06:00 Temperature 36.7 C Pulse Rate 92 Respiratory Rate 18 Blood Pressure 129/80 Pulse Oximetry 97 Intake/Output Intake/Output: Intake & Output 04/26/20 04/27/20 04/28/20 04/29/20 23:59 23:59 23:59 23:59 Intake Total 4740 2620 2840 1980 Output Total 2450 2400 2400 2000 Balance 2290 220 440 -20 Meds/Results Medications: Active Medications Generic Name Dose Route Start Last Admin Trade Name Freq PRN Reason Stop Dose Admin Hydrocodone Bitart/Acetaminophen 1 tab 04/26/20 10:15 04/29/20 08:36 [place] 5-325 Mg PO 1 tab Q6H PRN Administration Pain Rated 4-6 Albuterol 2 puff 04/25/20 23:50 Proventil Hfa INHALATION PRN PRN Shortness Of Breath Fenofibrate 145 mg 04/26/20 09:00 04/29/20 08:37 Tricor PO 145 mg DAILY ROSENDA Administration Vancomycin HCl 1,750 mg in 500 mls @ 250 mls/hr 04/28/20 16:00 04/29/20 05:17 Vancomycin 1,750 Mg/D5w 500 Ml IVPB Infused Q12H ROSENDA Infusion Lidocaine 1 patch 04/28/20 09:00 04/29/20 08:37 Lidoderm TRANSDERM 1 patch DAILY ROSENDA Administration Lidocaine HCl 5 ml 04/29/20 10:52 Xylocaine 1% Local Inj INFILTRATE 04/29/20 10:53 ONCE ONE Lorazepam 0.5 mg 04/25/20 23:50 04/26/20 10:19 Ativan Inj IV PUSH 0.5 mg Q6H PRN Administration Anxiety Lorazepam 0.5 mg 04/26/20 10:14 04/28/20 19:58 Ativan Tablet PO 0.5 mg Q6H PRN Administration Anxiety Nicotine 1 patch 04/26/20 21:12 04/28/20 20:33 Nicoderm Cq 21 Mg TRANSDERM 1 patch HS ROSENDA Administration Radiology Results: ITS Impressions Chest X-Ray 04/25/20 11:22 IMPRESSION: 1. Right perihilar opacity which could reflect right hilar vasculature or airspace opacity such as pneumonia. Chest/Abdomen/Pelvis CTA 04/25/20 13:16 IMPRESSION: 1. Some scattered ill-defined peripheral opacities most likely acute infectious process; recommend considering/excluding COVID-19. 2. Small amount of nonspecific right pelvic fat stranding. Normal appendix and ovary. I discussed airspace disease with Yessy Ibarra PA-C at 04/25/2020 13:[address] 04/28/20 07:46 IMPRESSION: 1. No acute lumbar findings. 2. Mild lower lumbar spondylosis. Labs Labs: Laboratory Results - last 24 hr 04/28/20 04/29/20 15:07 06:01 Sodium 140 Potassium 3.4 Chloride 103 Carbon Dioxide 27 Anion Gap 13.4 BUN 10 Creatinine 0.60 L Estim Creat Clear Calc 129 Estimated GFR > 60 Glucose 98 Calcium 9.2 Total Bilirubin 0.2 AST 29 ALT 16 Alkaline Phosphatase 113 Total Protein 7.0 Albumin 3.2 L Vancomycin Trough 8.9 L
--- NOTE | 2020-04-29 11:20 | PM.IMPN ---
Progress Note: A&P Assessment and Plan (1) MRSA (methicillin resistant Staphylococcus aureus) septicemia: Code(s): A41.02 - Sepsis due to Methicillin resistant Staphylococcus aureus Status: Acute Assessment and Plan: Patient presents to the emergency room with back pain. Was found have elevated white count and further evaluation showing possible pneumonia. CRP was 37. She was tested for COVID which was negative. She started on IV antibiotics after blood cultures drawn. Both blood cultures have returned positive for MRSA. Urine culture has also returned positive for MRSA but only 50 to [id number] colonies. This may have been hematologic spread to the kidneys. Kidneys are normal on CT scan from admission. ID has been consulted and antibiotics have been narrowed to vancomycin only. No fevers. The source of the MRSA could be from her IV drug use or possibly skin source given her multiple eschars. Will check echocardiogram given the findings on telemetry. Repeat blood cultures. appreciate ID input. (2) Pneumonia: Qualifiers: Laterality: bilateral Lung location: lower lobe of lung Pneumonia type: due to unspecified organism Qualified Code(s): J18.9 - Pneumonia, unspecified organism Code(s): J18.9 - Pneumonia, unspecified organism Status: Acute Assessment and Plan: Chest x-ray on admission showing right perihilar opacities. CT of the chest showing scattered ill-defined peripheral opacities most likely acute infectious process. This is probably related to her MRSA septicemia. Suspect either primary source or more likely this is a seated from her bacteremia. She may also have endocarditis resulting in these findings on imagin. Antibiotics have been narrowed to vancomycin only. Her cough is improved. She has not required oxygen. Follow up on white count and inflammatory markers. D-dimer is positive most likely related to above. CTA showing no intraluminal filling defects. Right lower extremity venous Doppler 03/15/2020 was negative for DVT. (3) Low back pain: Code(s): M54.5 - Low back pain Status: Acute Assessment and Plan: patient with new onset low back pain. She has a history of IV drug use. Consider diskitis as etiology of her septicemia. CT of the lumbar spine was unrevealing. Will check MRI. (4) IV drug user: Code(s): F19.90 - Other psychoactive substance use, unspecified, uncomplicated Status: Chronic Assessment and Plan: Patient was found to be positive for methamphetamines. She admits to IVDA. She was educated about the benefits of abstaining from drug use. SW to provide information/education. She is agreeable to be tested for HIV adn Hepatitis. Second degree AV block [place] type 1 noted. Potassium slightly low so will replace. Check magnesium level. Check echocardiogram. (5) Asthma: Code(s): J45.909 - Unspecified asthma, uncomplicated Status: Chronic Assessment and Plan: Stable. Continue with her albuterol inhalers. (6) Anxiety: Code(s): F41.9 - Anxiety disorder, unspecified Status: Chronic Assessment and Plan: Mood stable. Continue P.r.n. Ativan. (7) High cholesterol: Code(s): E78.00 - Pure hypercholesterolemia, unspecified Status: Chronic Assessment and Plan: Continue with her fenofibrate. (8) DVT prophylaxis: Code(s): Z29.9 - Encounter for prophylactic measures, unspecified Status: Acute Assessment and Plan: Lovenox Subjective Date/time seen: 04/29/20 11:20 Interval history: 24yo female with hx of IVDA (last used 1 month ago) here for low back pain and found to have MRSA septicemia. COVID negative. Assuming care. Chart reviewed. Patient continues to have low back pain. She has difficulty ambulating because of the pain. She slept poorly last night because of noise. She denies shortness of b
[2020-04-29] MEDS: ENOXAPARIN 40 MG/0.4 ML SYRINGE SUB-Q (13:20)
[2020-04-29] MEDS: LORazepam 0.5 MG TABLET PO ×2 (13:40→20:16)
[2020-04-29] MEDS: LIDOCAINE HCL 1% LOCAL INJ 2 ML AMPUL 5 ML INFILTRATE (14:45)
--- NOTE | 2020-04-29 15:35 | CONS_ITS ---
DATE OF CONSULTATION: 04/29/2020 REASON FOR CONSULTATION: MRSA bacteremia. HISTORY OF PRESENT ILLNESS: The patient is a 24-year-old female who uses IV drugs, injecting herself in the chest, arms, and legs at various times. She cannot specify where she used most recently, but this was about 1 month ago. She presented to the hospital on April 25 with low back pain in the lumbar region, also nausea. Here she has been found to have MRSA in her bloodstream and consultation requested. She has had previous incision and drainage of a left upper chest wall furuncle in the distant past. No active skin lesions by her description. No fever, chills, or sweats. ALLERGIES: UNKNOWN. PRESENT MEDICATIONS: List reviewed. No immunosuppressants. Home medications reviewed. HABITS: Marijuana, tobacco, methamphetamine, and rare alcohol. PAST MEDICAL HISTORY: Bipolar, GERD, hyperlipidemia. PAST SURGICAL HISTORY: No other past operations. REVIEW OF SYSTEMS: Constitutional, allergic, immunologic, skin, musculoskeletal, GI, respiratory negative other than some left upper chest pain today. FAMILY HISTORY: Not pertinent to her present illness. SOCIAL HISTORY: She works, lives with her grandmother. PHYSICAL EXAMINATION: GENERAL: This is a young female who appears much older than her actual age. No respiratory distress. VITAL SIGNS: Afebrile since arrival, T-max 37.7, 129/80, 92, 18. SKIN: No generalized rashes. She has multiple crusted lesions, arms and legs. EENT: Pupils are equal, round, and reactive to light. The oropharynx, oral mucosa normal. Teeth in fair repair. NECK: No meningismus. LUNGS: Clear to auscultation. CARDIAC: Regular rate and rhythm. No murmur or gallop. ABDOMEN: Morbidly obese, nontender. No organomegaly. EXTREMITIES: No edema. She has no active cellulitis. MUSCULOSKELETAL: Mildly diminished range of motion in the right shoulder in abduction. She has tenderness over the AC joint. RADIOLOGY: CT of the lumbar spine showed no diskitis or osteomyelitis. Chest x-ray, perihilar opacity. LABORATORY DATA: Blood cultures, also urine culture MRSA. Vancomycin FLO equal 1 susceptible to trimethoprim sulfa. White blood cell count yesterday 14.1, hemoglobin 9.9, platelets are 324. Mild left shift demonstrated. Her chemistry panel normal except for an albumin 3.2. Urinalysis, contaminated specimen. Vancomycin trough subtherapeutic at 8.9. Drug screen, cannabinoids and amphetamines. COVID was nonreactive. ASSESSMENT: 1. Methicillin-resistant Staphylococcus aureus bacteremia due to IV drug use and injection into the blood stream from cutaneous felipe. Other causes of bacteremia are unlikely. 2. Back pain, likely due to her bacteremia. 3. Left shoulder pain, also due to #1. RECOMMENDATIONS: 1. Continue vancomycin. 2. Not a candidate for home IV therapy, but discussed with IV therapist and we will place a PIC for inpatient use only. Thank you very much for asking me to see her. CHERIE JOYNER M.D. COMPOSITE WORKER COMPOSITE WORKER D I MT: Eve
[2020-04-29] MEDS: CENTRAL LINE FLUSH 10 ML IV PUSH (20:07)
[2020-04-29] MEDS: NICOTINE (*PBKC) 21 MG PATCH 1 PATCH TRANSDERM (20:12)
[2020-04-30] VITALS (9 sets, daily range): BP systolic 109–140; BP diastolic 60–87; PULSE 73–96; RESP 16–20; TEMP 36.3–36.8; O2SAT 96–99
--- NOTE | 2020-04-30 01:51 | PC.NURSE ---
at about 013, I went to assist pt to commode. Both her lidocaine & nicotine patch were removed. Pt stated she took them both off and said they didnt assist her.
[2020-04-30] MEDS: CENTRAL LINE FLUSH 10 ML IV PUSH ×3 (06:04→21:01)
[2020-04-30 06:36] LABS: Basophils Percent Auto 0.1 % (0.2-1.2); Eosinophils Absolute Auto 0.1 K/mm3 (0-0.3); Eosinophils Percent Auto 0.7 % (0-4.4); Hematocrit 29.5 % (37.0-47.0); Hemoglobin 9.4 g/dL (12.0-15.0); Immature Granulocyte Absolute 0.23 K/mm3 (0.00-0.031); Immature Granulocyte Percent A 1.7 % (0-0.5); Lymphocytes Absolute Auto 3.12 K/mm3 (0.9-3.2); Lymphocytes Percent Auto 23.2 % (18.3-44.2); Mean Corpuscular HGB Conc 31.9 g/dl (32-36); Mean Corpuscular Hemoglobin 24.9 pg (26-34); Mean Corpuscular Volume 78.2 fl (80-100); Mean Platelet Volume 9.1 fl (7.4-10.4); Monocytes Absolute Auto 0.6 K/mm3 (0.1-0.6); Monocytes Percent Auto 4.5 % (2.6-8.5); Neutrophils Absolute Auto 9.4 K/mm3 (1.3-6.7); Neutrophils Percent Auto 69.8 % (45.5-73.1); Platelet Count Result 474 k/mm3 (150-375); Red Blood Count 3.77 M/mm3 (4.2-5.4); Red Cell Distribution Width 15.9 % (11.5-14.5); White Blood Count 13.4 K/mm3 (4.5-10.0)
[2020-04-30 07:45] LABS: Hepatitis B Surface Antigen Negative (Negative)
[2020-04-30 08:02] LABS: Hepatitis B Surface Anti Res Negative; Hepatitis C Virus Antibody Negative (Negative)
[2020-04-30] MEDS: FENOFIBRATE NANOCRYSTALLIZED 145 MG TABLET PO (08:06)
[2020-04-30] MEDS: ENOXAPARIN 40 MG/0.4 ML SYRINGE SUB-Q (08:06)
[2020-04-30 08:54] LABS: Anion Gap 10.2 mmol/L (7-16); Blood Urea Nitrogen 9 mg/dL (7-17); Calcium 8.6 mg/dL (8.4-10.2); Carbon Dioxide 32 mmol/L (22-30); Chloride 99 mmol/L (98-107); Estimated CRCL calculation 112 ml/min; Estimated Glomerular Filt Rate > 60; Glucose 89 mg/dL (65-105); Potassium 3.2 mmol/L (3.4-5.0); Sodium 138 mmol/L (137-145)
[2020-04-30 09:36] LABS: HIV 1/2 Ab P24 Ag Result Negative (Negative)
[2020-04-30 10:59] LABS: CRP 13.4 mg/dL (<1.0)
--- NOTE | 2020-04-30 12:49 | PM.IMPN ---
Progress Note: A&P Assessment and Plan (1) Pneumonia: Qualifiers: Laterality: bilateral Lung location: lower lobe of lung Pneumonia type: due to unspecified organism Qualified Code(s): J18.9 - Pneumonia, unspecified organism Code(s): J18.9 - Pneumonia, unspecified organism Status: Acute Assessment and Plan: Chest x-ray on admission showing right perihilar opacities. CT of the chest showing scattered ill-defined peripheral opacities most likely acute infectious process. This is probably related to her MRSA septicemia. Suspect either primary source or this is seeded from her bacteremia. She does not appear to have endocarditis. Antibiotics have been narrowed to vancomycin only. No fevers. She has not required oxygen. WBC slightly better and CRP down to 13. D-dimer is positive most likely related to above. CTA showing no intraluminal filling defects. Right lower extremity venous Doppler 03/15/2020 was negative for DVT. (2) MRSA (methicillin resistant Staphylococcus aureus) septicemia: Code(s): A41.02 - Sepsis due to Methicillin resistant Staphylococcus aureus Status: Acute Assessment and Plan: Patient presents to the emergency room with back pain. Was found have elevated white count and further evaluation showing possible pneumonia. CRP was 37. She was tested for COVID which was negative. She started on IV antibiotics after blood cultures drawn. Both blood cultures have returned positive for MRSA. Urine culture has also returned positive for MRSA but only 50 to 100K colonies. This may have been hematologic spread to the kidneys. Kidneys are normal on CT scan from admission. ID has been consulted and antibiotics have been narrowed to vancomycin only. No fevers. The source of the MRSA from skin source given her multiple eschars. Repeat blood cultures pending. appreciate ID input. (3) Low back pain: Code(s): M54.5 - Low back pain Status: Acute Assessment and Plan: Patient with new onset low back pain. She has a history of IV drug use. CT of the lumbar spine was unrevealing. MRI lumbar spine showing L5-S1 mass effect on right S1 nerve root. Add heating pad and Flexeril. (4) IV drug user: Code(s): F19.90 - Other psychoactive substance use, unspecified, uncomplicated Status: Chronic Assessment and Plan: Patient was found to be positive for methamphetamines. She admits to IVDA. She has been educated about the benefits of abstaining from drug use. SW to provide information/education. HIV and Hepatitis panel negative. (5) Dysrhythmias: Code(s): I49.9 - Cardiac arrhythmia, unspecified Status: Acute Assessment and Plan: Second degree AV block Mobitz type 1 noted. Now with NSVT. Echo essentially normal. Possibly related to low Potassium so will replace. Consider intracardiac abscess but felt less likely. Follow up on repeat BCx. Mag 2.0. Cardiology consult. (6) Asthma: Code(s): J45.909 - Unspecified asthma, uncomplicated Status: Chronic Assessment and Plan: Stable. Continue with her albuterol inhalers. (7) Anxiety: Code(s): F41.9 - Anxiety disorder, unspecified Status: Chronic Assessment and Plan: Patietn more upset but related to her upcoming court date. Continue P.r.n. Ativan. (8) High cholesterol: Code(s): E78.00 - Pure hypercholesterolemia, unspecified Status: Chronic Assessment and Plan: Continue with her fenofibrate. (9) DVT prophylaxis: Code(s): Z29.9 - Encounter for prophylactic measures, unspecified Status: Acute Assessment and Plan: Lovenox (10) Anemia: Code(s): D64.9 - Anemia, unspecified Status: Acute Assessment and Plan: Hgb down to 9 range but stable. Check iron studies. Continue to follow. Subjective Date/time seen: 04/30/20 12:49 In
[2020-04-30] MEDS: NICOTINE (*PBKC) 21 MG PATCH 1 PATCH TRANSDERM (19:47)
[2020-04-30] MEDS: LORazepam 0.5 MG TABLET PO (21:00)
[2020-05-01] VITALS (7 sets, daily range): BP systolic 109–134; BP diastolic 69–87; PULSE 81–126; RESP 16–18; TEMP 36.3–36.8; O2SAT 97–98
[2020-05-01 03:24] LABS: Hematocrit 29.9 % (37.0-47.0); Hemoglobin 9.4 g/dL (12.0-15.0); Mean Corpuscular HGB Conc 31.4 g/dl (32-36); Mean Corpuscular Hemoglobin 24.9 pg (26-34); Mean Corpuscular Volume 79.1 fl (80-100); Platelet Count Result 466 k/mm3 (150-375); Red Blood Count 3.78 M/mm3 (4.2-5.4); Red Cell Distribution Width 15.9 % (11.5-14.5); White Blood Count 13.2 K/mm3 (4.5-10.0)
[2020-05-01 03:37] LABS: Anion Gap 9.8 mmol/L (7-16); Blood Urea Nitrogen 12 mg/dL (7-17); Calcium 8.6 mg/dL (8.4-10.2); Carbon Dioxide 32 mmol/L (22-30); Chloride 101 mmol/L (98-107); Estimated CRCL calculation 99 ml/min; Estimated Glomerular Filt Rate > 60; Glucose 92 mg/dL (65-105); Potassium 3.8 mmol/L (3.4-5.0); Sodium 139 mmol/L (137-145)
[2020-05-01 03:54] LABS: Iron 55 ug/dL (37-170)
[2020-05-01 04:00] LABS: Vancomycin Trough 15.5 ug/mL (10.0-20.0)
[2020-05-01 04:03] LABS: Percent Iron Saturation 19 % (20-50)
[2020-05-01] MEDS: CENTRAL LINE FLUSH 10 ML IV PUSH ×3 (06:23→22:38)
[2020-05-01] MEDS: FENOFIBRATE NANOCRYSTALLIZED 145 MG TABLET PO (09:29)
[2020-05-01] MEDS: ENOXAPARIN 40 MG/0.4 ML SYRINGE SUB-Q (09:30)
--- NOTE | 2020-05-01 10:13 | PM.CNCAR ---
Assessment and Plan Additional Plan 24-year-old white female with: Episode of asymptomatic nonsustained ventricular tachycardia 2 days ago while on telemetry in the hospital. She indicated this was coinciding with an episode where she was rather emotional about her custody dispute regarding her child. It is certainly likely that the sympathetic overdrive at this time has cause some ventricular irritability. This occurring in the setting of a 24-year-old patient with a structurally normal ECHO is not of any great concern in my opinion. There is always concern regarding her illicit drug he use that she is at obvious risk regarding endocarditis. She has no physical exam stigmata of endocarditis, she is not febrile from what I can see and does not have any demonstrable regurgitant lesions noted on echo. This reason I would doubt at this time that a perivalvular abscess is a significant concern. I do not believe any further cardiac workup is necessary and I do not see a significant reason that she has to remain on telemetry while in the hospital. Armando Travis MD [facility] History of Present Illness History of Present Illness Consult date/time: Date of service:05/01/20 10:13 Reason For Visit: Pneumonia Narrative: This is a 23-year-old woman I am seeing at the request of the hospitalist this morning because of ventricular arrhythmia noticed on her telemetry the afternoon of 04/29/2020. The patient is unaware of any cardiac problems or diagnosis in the past other than she was told as a child she was found to have a cardiac murmur. She was admitted to the hospital here through the emergency department on 04/25/2020 when she presented to the emergency room complaining about low back pain. Her evaluation included some thoracic imaging which raised concern about pneumonia and it looks like she was admitted because there was concern that she might have burgess virus. She did not really have any complaints of fever chills coughing for what she tells me today. While she has been in the hospital she has had blood cultures done which have been found to be positive for methicillin-resistant Staph. She does abuse intravenous drugs and an Infectious Disease consultation has been obtained to guide in the treatment of that. For reasons that are not obvious to me she has been on telemetry since she has been in the hospital and the rhythm strips on the chart all demonstrate nothing but normal sinus rhythm there was a rhythm strip sitting on the table in the dictating room from 04/29/2020 at 3:16 p.m. which demonstrates an 8 beat run of a wide QRS tachycardia that is irregular labeled as ventricular tachycardia by the monitor and Prieb seated in terminated by normal sinus rhythm. It appears that this telemetry finding triggered this consultation. The patient had an echocardiogram done because of the staph bacteremia which I read couple of days ago is a essentially normal exam. There were no valvular regurgitant lesions identified. Patient is comfortable offers no other complaints she is emotional and concerned that she has a court date tomorrow that pertains to a custody decision for her daughter and she is concerned that if she misses this court appearance she will lose custody of her child. She stated that on 04/29/2015 when this rhythm issue was recorded she was quite emotional about this issue as well. I was told that social workers have been contacted to assist her with contacting the cord regarding this matter. Review of Systems Constitutional: Constitutional: Reports fatigue Eyes: Eyes: Reports no additional eye complaints ENT: Reports system reviewed and no additional complaints, except as documented Cardiovascular: Cardiovascular: Reports no additional cardiovascular complaints Respiratory: Respiratory: Reports no additional respiratory complaints Gastrointestinal: Gastrointestinal: Reports no additional gastrointestinal complaints Musculoskeletal:
--- NOTE | 2020-05-01 11:41 | PM.IMPN ---
Progress Note: A&P Assessment and Plan (1) Pneumonia: Qualifiers: Laterality: bilateral Lung location: lower lobe of lung Pneumonia type: due to unspecified organism Qualified Code(s): J18.9 - Pneumonia, unspecified organism Code(s): J18.9 - Pneumonia, unspecified organism Status: Acute Assessment and Plan: Chest x-ray on admission showing right perihilar opacities. CT of the chest showing scattered ill-defined peripheral opacities most likely acute infectious process. This is probably related to her MRSA septicemia. Suspect either primary source or this is seeded from her bacteremia. She does not appear to have endocarditis. Antibiotics have been narrowed to vancomycin only. No fevers. She has not required oxygen. WBC slightly better and CRP down to 13. D-dimer is positive most likely related to above. CTA showing no intraluminal filling defects. Right lower extremity venous Doppler 03/15/2020 was negative for DVT. Exam improved and no O2 requiremnt. (2) MRSA (methicillin resistant Staphylococcus aureus) septicemia: Code(s): A41.02 - Sepsis due to Methicillin resistant Staphylococcus aureus Status: Acute Assessment and Plan: Patient presents to the emergency room with back pain. Was found have elevated white count and further evaluation showing possible pneumonia. CRP was 37. She was tested for COVID which was negative. She started on IV antibiotics after blood cultures drawn. Both blood cultures have returned positive for MRSA. Urine culture has also returned positive for MRSA but only 50 to 100K colonies. This may have been hematologic spread to the kidneys. Kidneys are normal on CT scan from admission. ID has been consulted and antibiotics have been narrowed to vancomycin only. No fevers. The source of the MRSA from skin source given her multiple eschars. Repeat blood cultures NGTD. Appreciate ID input. Vanco through tomorrow then home with Bactrim (3) Low back pain: Code(s): M54.5 - Low back pain Status: Acute Assessment and Plan: Patient with new onset low back pain. She has a history of IV drug use. CT of the lumbar spine was unrevealing. MRI lumbar spine showing L5-S1 mass effect on right S1 nerve root most likely causing her pain. Continue heating pad and Toradol. No Flexeril given the interactions. Encouraged her to be out of bed. (4) IV drug user: Code(s): F19.90 - Other psychoactive substance use, unspecified, uncomplicated Status: Chronic Assessment and Plan: Patient was found to be positive for methamphetamines. She admits to IVDA. She has been educated about the benefits of abstaining from drug use. SW to provide information/education. HIV and Hepatitis panel negative. (5) Dysrhythmias: Code(s): I49.9 - Cardiac arrhythmia, unspecified Status: Acute Assessment and Plan: Second degree AV block Mobitz type 1 noted. Episode of NSVT felt related to her being upset. Echo essentially normal. Cardiology evaluated the patietn but did not feel any further investigation required. Stop tele. (6) Asthma: Code(s): J45.909 - Unspecified asthma, uncomplicated Status: Chronic Assessment and Plan: Stable. Continue with her albuterol inhalers. (7) Anxiety: Code(s): F41.9 - Anxiety disorder, unspecified Status: Chronic Assessment and Plan: Stable. Continue P.r.n. Ativan. (8) High cholesterol: Code(s): E78.00 - Pure hypercholesterolemia, unspecified Status: Chronic Assessment and Plan: Continue with her fenofibrate. (9) DVT prophylaxis: Code(s): Z29.9 - Encounter for prophylactic measures, unspecified Status: Acute Assessment and Plan: Lovenox (10) Anemia: Code(s): D64.9 - Anemia, unspecified Status: Acute Assessment and Plan: Hgb down to 9 range but
--- NOTE | 2020-05-01 13:39 | WPDINFPN2 ---
Progress Note: A&P Assessment and Plan (1) MRSA (methicillin resistant Staphylococcus aureus) septicemia: Code(s): A41.02 - Sepsis due to Methicillin resistant Staphylococcus aureus Status: Acute Assessment and Plan: 1. MRSA bacteremia, with infection, self inflicted 2. IVDA REC Vanc monotherapy #7. Not a candidate for home IV. If BCs repeat remain ng tomorrow, then place on oral TMP-SMX DS every eight hours x 21 days. Subjective Date/time seen: 05/01/20 13:39 Interval history: shoulder is better Exam Narrative: Exam Narrative: afebrile Const: General: no acute distress Resp: Effort & Inspection: normal respiratory effort Auscultation: clear to auscultation bilaterally Cardio: Rate: regular rate Rhythm: regular rhythm Heart sounds: no murmurs Skin: General skin exam: normal color and no rashes or lesions noted Extrem: Other: left shoulder better ROM, no erythema Objective Data Vital Signs Vital Signs: Vital Signs - 24 hr 04/30/20 14:00 04/30/20 16:00 04/30/20 20:00 Temperature 36.3 C L Pulse Rate 86 89 91 Respiratory Rate 18 Blood Pressure 140/87 Pulse Oximetry 99 04/30/20 22:00 05/01/20 00:00 05/01/20 04:00 Temperature 36.6 C Pulse Rate 85 92 81 Respiratory Rate 16 Blood Pressure 109/60 Pulse Oximetry 99 05/01/20 06:00 Temperature 36.4 C Pulse Rate 92 Respiratory Rate 16 Blood Pressure 134/87 Pulse Oximetry 97 Intake/Output Intake/Output: Intake & Output 04/28/20 04/29/20 04/30/20 05/01/20 23:59 23:59 23:59 23:59 Intake Total 2840 3840 3810 1300 Output Total 2400 2600 4200 Balance 440 1240 -390 1300 Meds/Results Medications: Active Medications Generic Name Dose Route Start Last Admin Trade Name Freq PRN Reason Stop Dose Admin Hydrocodone Bitart/Acetaminophen 1 tab 04/30/20 13:15 Howard 5-325 Mg PO Q6H PRN Pain Rated 7-10 Albuterol 2 puff 04/25/20 23:50 Proventil Hfa INHALATION PRN PRN Shortness Of Breath Enoxaparin Sodium 40 mg 04/30/20 09:00 05/01/20 09:30 Lovenox SUB-Q 40 mg DAILY ROSENDA Administration Fenofibrate 145 mg 04/26/20 09:00 05/01/20 09:29 Tricor PO 145 mg DAILY ROSENDA Administration Vancomycin HCl 1,500 mg in 500 mls @ 333.333 mls/hr 05/01/20 18:00 Vancomycin 1,500 Mg/D5w 500 Ml IVPB Q12H ROSENDA Lidocaine 1 patch 04/28/20 09:00 05/01/20 09:30 Lidoderm TRANSDERM Not Given DAILY ROSENDA Lorazepam 0.5 mg 04/26/20 10:14 04/30/20 21:00 Ativan Tablet PO 0.5 mg Q6H PRN Administration Anxiety Nicotine 1 patch 04/26/20 21:12 04/30/20 19:47 Nicoderm Cq 21 Mg TRANSDERM 1 patch HS ROSENDA Administration Sodium Chloride 10 ml 04/29/20 22:00 05/01/20 06:23 Central Line Flush IV PUSH 10 ml Q8HR ROSENDA Administration Sodium Chloride 10 ml 04/29/20 15:57 Central Line Flush IV PUSH PRN PRN with TPN bag changes Sodium Chloride 20 ml 04/29/20 15:57 Central Line Flush IV PUSH PRN PRN after blood draws Tramadol HCl 25 mg 04/30/20 13:11 05/01/20 09:40 Ultram PO 25 mg Q6H PRN Administration Pain Rated 4-6 Radiology Results: ITS Impressions Chest X-Ray 04/25/20 11:22 IMPRESSION: 1. Right perihilar opacity which could reflect right hilar vasculature or airspace opacity such as pneumonia. Chest/Abdomen/Pelvis CTA 04/25/20 13:16 IMPRESSION: 1. Some scattered ill-defined peripheral opacities most likely acute infectious process; recommend considering/excluding COVID-19. 2. Small amount of nonspecific right pelvic fat stranding. Normal appendix and ovary. I discussed airspace disease with Yessy Ibarra PA-C at 04/25/2020 13:[address] 04/28/20 07:46 IMPRESSION: 1. No acute lumbar findings. 2. Mild lower lumbar spondylosis. Lumbar Spine MRI 04/30/20 09:43 IMPRESSION: 1. Annular fissure with right paracentral disc extrusion at L5-S1
--- NOTE | 2020-05-01 13:45 | PCPTNOTE ---
Attempted therapy session. Pt requested therapy to come back due to still eating lunch. Will attempt again.
--- NOTE | 2020-05-01 14:59 | PCOTNOTE ---
Attempted to see patient this pm, however patient stated, I just finished with the other therapy. I'd like to get a pain pill first. Geoffrey is supposed to be brining it anytime. Pt reported walking to bathroom for first time without crying in pain. Pt unable to be seen at this time.
--- NOTE | 2020-05-01 21:31 | PC.NURSE ---
Dr. Travis ([id number]) upset that the telemetry reports charted contain no dysrhythmia strips, wondering why we bothered him. When I spoke to Dr. Ramos ([id number]) about pt's NPO status, he referenced waiting for Dr. Travis to decide. I informed him of Angy's comment. Rachel was also very upset that none of the dysrthymias were in the chart. I printed all of the tele alarms and called Dr. Travis, offering to fax them to him ([phone]). He stated no that he would be back up and that pt did not need to be NPO. Informed Rachel Travis would return to review the alarms and no need for NPO ([phone]). Pt had visitor (grandmother) come up. After visitor left room, I went to admin meds and noticed an odd smell. I asked pt if she had been smoking she stated no. I reminded her that smoking with a nicotine patch would make her sick. Pt admitted to having taken a cigarette from grandma. I removed cigarette from pt, noting it wet. Informed Dr. Ramos. Continuing to monitor.
[2020-05-01] MEDS: NICOTINE (*PBKC) 21 MG PATCH 1 PATCH TRANSDERM (22:32)
[2020-05-02 06:00] VITALS: BP 118/77; PULSE 86; RESP 16; TEMP 36.6; O2SAT 99
[2020-05-02] MEDS: CENTRAL LINE FLUSH 10 ML IV PUSH (06:21)
[2020-05-02 06:50] LABS: Estimated CRCL calculation 99 ml/min; Estimated Glomerular Filt Rate > 60
[2020-05-02] MEDS: FENOFIBRATE NANOCRYSTALLIZED 145 MG TABLET PO (08:04)
[2020-05-02] MEDS: ENOXAPARIN 40 MG/0.4 ML SYRINGE SUB-Q (08:05)
[2020-05-02 11:11] LABS: Basophils Percent Auto 0.2 % (0.2-1.2); Eosinophils Absolute Auto 0.2 K/mm3 (0-0.3); Eosinophils Percent Auto 1.6 % (0-4.4); Hematocrit 31.3 % (37.0-47.0); Hemoglobin 9.9 g/dL (12.0-15.0); Immature Granulocyte Absolute 0.15 K/mm3 (0.00-0.031); Immature Granulocyte Percent A 1.2 % (0-0.5); Lymphocytes Percent Auto 22.7 % (18.3-44.2); Mean Corpuscular HGB Conc 31.6 g/dl (32-36); Mean Corpuscular Hemoglobin 24.9 pg (26-34); Mean Corpuscular Volume 78.6 fl (80-100); Mean Platelet Volume 9.1 fl (7.4-10.4); Monocytes Absolute Auto 0.5 K/mm3 (0.1-0.6); Monocytes Percent Auto 3.6 % (2.6-8.5); Neutrophils Percent Auto 70.7 % (45.5-73.1); Platelet Count Result 515 k/mm3 (150-375); Red Blood Count 3.98 M/mm3 (4.2-5.4); Red Cell Distribution Width 15.9 % (11.5-14.5); White Blood Count 12.8 K/mm3 (4.5-10.0)
--- NOTE | 2020-05-02 11:26 | PM.DS ---
DS: Admitting Diagnosis Admitting Diagnosis Admitting Diagnosis: Contact with and (suspected) exposure to other viral communicable diseases DS: Discharge Diagnosis Discharge Diagnosis (1) MRSA (methicillin resistant Staphylococcus aureus) septicemia: Code(s): A41.02 - Sepsis due to Methicillin resistant Staphylococcus aureus Status: Acute Assessment and Plan: Patient presents to the emergency room with back pain. Was found have elevated white count and further evaluation showing possible pneumonia. CRP was 36. She was tested for COVID which was negative. She started on IV antibiotics after blood cultures drawn. Both blood cultures have returned positive for MRSA. Urine culture has also returned positive for MRSA but only 50 to 100K colonies. This may have been hematologic spread to the kidneys. Kidneys are normal on CT scan from admission. ID has been consulted and antibiotics have been narrowed to vancomycin only. No fevers. The source of the MRSA from skin source given her multiple eschars. Repeat blood cultures NGTD - called lab today and they state the cultures still are negative. Appreciate ID input. Vanco Day 8 with plans for oral TMP-SMX DS every eight hours x 21 days. (2) Pneumonia: Qualifiers: Laterality: bilateral Lung location: lower lobe of lung Pneumonia type: due to unspecified organism Qualified Code(s): J18.9 - Pneumonia, unspecified organism Code(s): J18.9 - Pneumonia, unspecified organism Status: Acute Assessment and Plan: Chest x-ray on admission showing right perihilar opacities. CT of the chest showing scattered ill-defined peripheral opacities most likely acute infectious process. This is probably related to her MRSA septicemia. Suspect either primary source or more likely seeded from her bacteremia. She does not appear to have endocarditis. Antibiotics have been narrowed to vancomycin only. No fevers. She has not required oxygen. WBC at 15K before trending down. CRP 36 but trending down on recheck. D-dimer is positive most likely related to above. CTA showing no intraluminal filling defects. Right lower extremity venous Doppler 03/15/2020 was negative for DVT. (3) Low back pain: Code(s): M54.5 - Low back pain Status: Acute Assessment and Plan: Patient with new onset low back pain. She has a history of IV drug use. CT of the lumbar spine was unrevealing. MRI lumbar spine showing L5-S1 mass effect on right S1 nerve root most likely causing her pain. Symptomatic treatment given. No right LE neurologic changes. She has been up walking to the bathroom now. (4) IV drug user: Code(s): F19.90 - Other psychoactive substance use, unspecified, uncomplicated Status: Chronic Assessment and Plan: Patient was found to be positive for methamphetamines. She admits to IVDA. She has been educated about the benefits of abstaining from drug use. SW provided information/education. HIV and Hepatitis panel negative. (5) Dysrhythmias: Code(s): I49.9 - Cardiac arrhythmia, unspecified Status: Acute Assessment and Plan: Second degree AV block Mobitz type 1 noted. Episode of NSVT felt related to patient being upset. Echo essentially normal. Cardiology evaluated the patient but did not feel any further investigation required. (6) Asthma: Code(s): J45.909 - Unspecified asthma, uncomplicated Status: Chronic Assessment and Plan: Stable. We continued with her albuterol inhalers. (7) Anxiety: Code(s): F41.9 - Anxiety disorder, unspecified Status: Chronic Assessment and Plan: Stable. Treated with prn Ativan. (8) High cholesterol: Code(s): E78.00 - Pure hypercholesterolemia, unspecified Status: Chronic Assessment and Plan: Stable. Continue with her fenofibrate. (9) Anemia: Code(s): D64.9 - Anemia,
--- NOTE | 2020-05-02 13:36 | WPDINFPN2 ---
Progress Note: A&P Assessment and Plan (1) MRSA (methicillin resistant Staphylococcus aureus) septicemia: Code(s): A41.02 - Sepsis due to Methicillin resistant Staphylococcus aureus Status: Acute Assessment and Plan: 1. MRSA bacteremia, with infection, self inflicted, microbiologic cure 2. IVDA REC Vanc monotherapy #8, stop and place on oral TMP SMX DS q8h as planned x 21 days. PICC out. Home ok. Subjective Date/time seen: 05/02/20 13:36 Interval history: no chills no chest pain no cough Exam Narrative: Exam Narrative: looks well, afebrile Const: General: no acute distress Eyes: General: appearance normal, both eyes and all related structures Resp: Effort & Inspection: normal respiratory effort Auscultation: clear to auscultation bilaterally Cardio: Rate: regular rate Rhythm: regular rhythm Heart sounds: no murmurs GI: Inspection: non-distended GI Palp: Yes Soft to palpation and No Tenderness to palpation present (GI) Skin: General skin exam: normal color and no rashes or lesions noted Objective Data Vital Signs Vital Signs: Vital Signs - 24 hr 05/01/20 14:00 05/01/20 22:00 05/02/20 06:00 Temperature 36.3 C L 36.8 C 36.6 C Pulse Rate 99 93 86 Respiratory Rate 18 18 16 Blood Pressure 109/69 119/80 118/77 Pulse Oximetry 98 98 99 Intake/Output Intake/Output: Intake & Output 04/29/20 04/30/20 05/01/20 05/02/20 23:59 23:59 23:59 23:59 Intake Total 3840 3810 4400 200 Output Total 2600 4200 1000 Balance 1240 -390 3400 200 Meds/Results Medications: Active Medications Generic Name Dose Route Start Last Admin Trade Name Freq PRN Reason Stop Dose Admin Hydrocodone Bitart/Acetaminophen 1 tab 04/30/20 13:15 [place] 5-325 Mg PO Q6H PRN Pain Rated 7-10 Albuterol 2 puff 04/25/20 23:50 Proventil Hfa INHALATION PRN PRN Shortness Of Breath Enoxaparin Sodium 40 mg 04/30/20 09:00 05/02/20 08:05 Lovenox SUB-Q 40 mg DAILY ROSENDA Administration Fenofibrate 145 mg 04/26/20 09:00 08/06/20 08:04 Tricor PO 145 mg DAILY ROSENDA Administration Vancomycin HCl 1,500 mg in 500 mls @ 333.333 mls/hr 05/01/20 18:00 05/02/20 06:21 Vancomycin 1,500 Mg/D5w 500 Ml IVPB 250 mls/hr Q12H ROSENDA Administration Lidocaine 1 patch 04/28/20 09:00 05/02/20 08:05 Lidoderm TRANSDERM Not Given DAILY ROSENDA Lorazepam 0.5 mg 04/26/20 10:14 04/30/20 21:00 Ativan Tablet PO 0.5 mg Q6H PRN Administration Anxiety Nicotine 1 patch 04/26/20 21:12 05/01/20 22:32 Nicoderm Cq 21 Mg TRANSDERM 1 patch HS ROSENDA Administration Sodium Chloride 10 ml 04/29/20 22:00 05/02/20 06:21 Central Line Flush IV PUSH 10 ml Q8HR ROSENDA Administration Sodium Chloride 10 ml 04/29/20 15:57 Central Line Flush IV PUSH PRN PRN with TPN bag changes Sodium Chloride 20 ml 04/29/20 15:57 Central Line Flush IV PUSH PRN PRN after blood draws Tramadol HCl 25 mg 04/30/20 13:11 05/02/20 08:04 Ultram PO 25 mg Q6H PRN Administration Pain Rated 4-6 Radiology Results: ITS Impressions Chest X-Ray 04/25/20 11:22 IMPRESSION: 1. Right perihilar opacity which could reflect right hilar vasculature or airspace opacity such as pneumonia. Chest/Abdomen/Pelvis CTA 04/25/20 13:16 IMPRESSION: 1. Some scattered ill-defined peripheral opacities most likely acute infectious process; recommend considering/excluding COVID-19. 2. Small amount of nonspecific right pelvic fat stranding. Normal appendix and ovary. I discussed airspace disease with Yessy Ibarra PA-C at 04/25/2020 13:[address] 04/28/20 07:46 IMPRESSION: 1. No acute lumbar findings. 2. Mild lower lumbar spondylosis. Lumbar Spine MRI 04/30/20 09:43 IMPRESSION: 1. Annular fissure with right paracentral disc extrusion at L5-S1 which exerts mild mass effect upon the traversing right S1 nerve root. Correlat
[2020-05-02 19:25] LABS: Hepatitis B Core Ab Total Nonreactive (Nonreactive)
--- NOTE | 2020-05-07 11:11 | PC.NURSE ---
Hep B Core Ab is negative.
== END 2020-05-02 14:10 | disposition home or self-care (01) | DRG 720 ==
LOC: ANHED 15:04 → ANH3MEDSUR 15:48
PROVIDERS: Family Medicine; Nurse Practitioner; Physician Assistant; Admitting Provider Internal Medicine; Emergency Provider Emergency Medicine; PCP Emergency Medicine; Visit Provider Internal Medicine
DX: A41.02 Sepsis due to Methicillin resistant Staphylococcus aureus (principal); J18.9 Pneumonia, unspecified organism; Z20.828 Contact with and (suspected) exposure to other viral communicable diseases; M54.5 Low back pain; F19.90 Other psychoactive substance use, unspecified, uncomplicated; F17.210 Nicotine dependence, cigarettes, uncomplicated; I44.1 Atrioventricular block, second degree; J45.909 Unspecified asthma, uncomplicated; E78.00 Pure hypercholesterolemia, unspecified; D64.9 Anemia, unspecified; F41.9 Anxiety disorder, unspecified; F32.9 Major depressive disorder, single episode, unspecified; M25.512 Pain in left shoulder
CPT/HCPCS: 36415; 36569; 71046; 71275; 72131; 72158; 74177; 80048; 80053; 80202; 80307; 81001; 81025; 82565; 82728; 83540; 83550; 83605; 83690; 83735; 84443; 84484; 85025; 85027; 85380; 85610; 85730; 86140; 86703; 86704; 86706; 86803; 87040; 87077; 87086; 87088; 87186; 87340; 87635; 93005; 93306; 96361; 96365; 96366; 96367; 96375; 97110; 97116; 97161; 97165; 97530; 97535; 99285; A9270; A9577; C9803; G0378; G0379; G0432; J0131; J0456; J0696; J1650; J2060; J3360; J3370; J3480; J7030; Q9967; U0003

== ENCOUNTER 2022-11-11 12:58 | Outpatient (CLI) | payer OTHER, SELFPAY ==
--- NOTE | ~2022-11-11 | US_ITS ---
EXAMINATION: US OB <= 14 weeks fetus DATE: 11/11/2022 14:01 INDICATION: First trimester dating TECHNIQUE: Real-time pelvic transabdominal and transvaginal ultrasound was performed. COMPARISON: None. FINDINGS: The uterus measures 9.4 x 4.7 x 5.7 cm. There is an intrauterine gestational sac. A yolk s ac is identified. The pole is visible. The mean sac diameter measures 10 mm, which correlates w ith an estimated gestational age of 5 weeks and 5 day(s) (+/-) 4 day(s). The right ovary measures 1.6 x 3.1 x 1.5 cm. The left ovary measures 2.2 x 2.2 x 2.2 cm. There is nor mal vascular flow in the ovaries. There is no free fluid in the pelvis. IMPRESSION: 1. Intrauterine gestational sac and yolk sac with an estimated gestational age of 5 weeks and 5 day(s ) (+/-) 4 day(s) and an estimated delivery date of 06/29/2023 based on mean sac diameter. pole n ot visualized, likely due to early gestation. Reviewed, dictated and finalized at location B. [employer] IMPRESSION: 1. Intrauterine gestational sac and yolk sac with an estimated gestational age of 5 weeks and 5 day(s) (+/-) 4 day(s) and an estimated delivery date of 023 based on mean sac diameter. pole not visualized, likely due to early gestation.
== END 2022-11-11 12:59 | disposition home or self-care (01) ==
PROVIDERS: PCP Emergency Medicine; Visit Provider Advanced Practice Midwife
DX: Z36.87 Encounter for antenatal screening for uncertain dates (principal); Z3A.01 Less than 8 weeks gestation of pregnancy
CPT/HCPCS: 76801

== ENCOUNTER 2023-01-05 14:09 | Emergency (ER) | payer OTHER, SELFPAY ==
[2023-01-05 14:21] VITALS: BP 105/47; PULSE 80; RESP 16; TEMP 37.2; O2SAT 99
--- NOTE | 2023-01-05 15:37 | ED.GENADULT ---
HPI - General Adult General Chief complaint: Nausea/Vomiting/Diarrhea Stated complaint: Nausea/ Vomiting/ Source: patient Mode of arrival: ambulatory Limitations: no limitations History of Present Illness HPI narrative: patient presents for evaluation of left-sided abdominal pain that she experienced earlier this morning. She indicates she is currently , approximately 15 weeks gestation. . She had an ultrasound on 11/11/22 that showed intrauterine gestational sac and yolk sac with an estimated gestational age of 5 weeks and 5 day(s) (+/-) 4 day(s) and an estimated delivery date of 06/29/2023 based on mean sac diameter. pole not visualized, likely due to early gestation. she states her abdominal pain started after vomiting earlier today. She indicates she has experienced morning sickness and symptoms this morning were consistent with that. Her abdominal pain was of the stabbing pain, without numerical rating. Pain lasted 45 minutes and resolved without intervention. She has had some urinary symptoms for awhile including urinary frequency, incomplete emptying, and intermittent dysuria. Denies any low back pain. No fever, chills, vaginal bleeding or discharge. She does admit to using fentanyl on a daily basis, with last use about one week ago. No ETOH. She is trying to find an OBGYN near her place of residence to follow her during this . Normal bowel pattern is once every 3-5 days. Last bowel movement was about 3 days ago. No blood or mucus in the stool. Related Data Home Medications Medication Instructions Recorded Confirmed Cranberry Gummies 01/05/23 01/05/23 folic acid 01/05/23 Allergies Allergy/AdvReac Type Severity Reaction Status Date / Time No Known Allergies Allergy Verified 01/05/23 14:11 Review of Systems Review of Systems: CONSTITUTIONAL: Denies fever, chills, or sweats. EYES: Denies visual changes, redness, or discharge. ENT: Denies rhinorrhea, congestion, sore throat, or otalgia. CARDIOVASCULAR: Denies chest pain, palpitations, or edema. RESPIRATORY: Denies cough or dyspnea. GASTROINTESTINAL: reports left-sided abdominal pain. Reports frequent nausea and vomiting. Denies constipation. GENITOURINARY: Denies dysuria or hematuria. SKIN: Denies rash or itching. MUSCULOSKELETAL: Denies back pain, joint pain, or myalgia. NEUROLOGIC: Denies headache, numbness, dizziness, or weakness. PSYCHIATRIC: Denies anxiety or depression. [facility] Past Medical History Medical History Anxiety Asthma Bipolar disorder Bleeding gums Depression Drug dependence GERD (gastroesophageal reflux disease) Headache High cholesterol IV drug user methamphetamines Nausea & vomiting Sleep disorder Surgical History Surgical History No pertinent past surgical history Family History Family History Grandparent Arthritis Diabetes mellitus Nerve disorder Mother Nerve disorder Accidental fentanyl overdose she from overdose Social History Social History Social History: Uses methamphetamine and fentanyl. She has 1 daughter which is being raised by the other grandmother. Lives with friends. [facility] also states that she smokes marijuana every day. She continues to smoke a pack a cigarettes a day. She is a full code she does not have a durable power contract attorney for healthcare. Smoking packs per day: 1 Smoking cigarettes per day: 20.0 Years smoked: 10 Smoking pack-years: 10.00 Smoking status: Current some day smoker Alcohol intake: current Drinks per week: 1 Alcohol use details: Socially Substance use: current Substance use type: marijuana, amphetamines and opiates Other substance usage details: marijuana
--- NOTE | 2023-01-05 15:41 | PC.NURSE ---
gave ua spec.
== END 2023-01-05 16:09 | disposition home or self-care (01) ==
PROVIDERS: Emergency Provider Nurse Practitioner
DX: O21.9 Vomiting of pregnancy, unspecified (principal); Z3A.15 15 weeks gestation of pregnancy; O26.892 Other specified pregnancy related conditions, second trimester; R10.9 Unspecified abdominal pain; O99.512 Diseases of the respiratory system complicating pregnancy, second trimester; J45.909 Unspecified asthma, uncomplicated; O99.612 Diseases of the digestive system complicating pregnancy, second trimester; K21.9 Gastro-esophageal reflux disease without esophagitis; O99.282 Endocrine, nutritional and metabolic diseases complicating pregnancy, second trimester; E78.00 Pure hypercholesterolemia, unspecified; O99.330 Smoking (tobacco) complicating pregnancy, unspecified trimester; F17.210 Nicotine dependence, cigarettes, uncomplicated; O99.320 Drug use complicating pregnancy, unspecified trimester; F12.90 Cannabis use, unspecified, uncomplicated
CPT/HCPCS: 81003; 99213; G0463

== ENCOUNTER 2024-01-20 12:07 | Outpatient (CLI) | payer OTHER, SELFPAY ==
[2024-01-28 11:16] LABS: Reference Lab Test Name Methadone
[2024-01-28 11:17] LABS: Reference Lab Test Result 790
== END 2024-01-20 12:08 | disposition home or self-care (01) ==
DX: F11.20 Opioid dependence, uncomplicated (principal)
CPT/HCPCS: 36415

== ENCOUNTER 2024-01-20 13:40 | Outpatient (CLI) | payer OTHER, SELFPAY ==
[2024-01-20 14:27] LABS: Basophils Percent Auto 0.2 % (0.2-1.2); Eosinophils Percent Auto 0.3 % (0-4.4); Hematocrit 33.6 % (37.0-47.0); Immature Granulocyte Absolute 0.03 K/mm3 (0.00-0.031); Immature Granulocyte Percent A 0.3 % (0-0.5); Lymphocytes Absolute Auto 1.82 K/mm3 (0.9-3.2); Lymphocytes Percent Auto 15.9 % (18.3-44.2); Mean Corpuscular HGB Conc 32.7 g/dl (32-36); Mean Corpuscular Hemoglobin 28.8 pg (26-34); Mean Platelet Volume 10.5 fl (7.4-10.4); Monocytes Absolute Auto 0.4 K/mm3 (0.1-0.6); Monocytes Percent Auto 3.5 % (2.6-8.5); Neutrophils Absolute Auto 9.1 K/mm3 (1.3-6.7); Neutrophils Percent Auto 79.8 % (45.5-73.1); Platelet Count Result 278 k/mm3 (150-375); Red Blood Count 3.82 M/mm3 (4.2-5.4); Red Cell Distribution Width 13.5 % (11.5-14.5); White Blood Count 11.4 K/mm3 (4.5-10.0)
[2024-01-20 16:42] LABS: Hemoglobin A1C 4.9 % (<5.7)
[2024-01-23 13:33] LABS: Lead, Blood <1.0 mcg/dL (<3.5)
[2024-01-24 07:37] LABS: Collection Sample VENOUS
== END 2024-01-20 13:41 | disposition home or self-care (01) ==
LOC: ANHLAB 13:42
PROVIDERS: Visit Provider Obstetrics & Gynecology
DX: Z36.0 Encounter for antenatal screening for chromosomal anomalies (principal)
CPT/HCPCS: 36415; 83036; 83655; 85025; 86850; 86900; 86901

== ENCOUNTER 2024-04-07 17:45 | Observation (INO) | payer OTHER, SELFPAY ==
[2024-04-07] VITALS (95 sets, daily range): BP systolic 88–133; BP diastolic 43–82; PULSE 52–105; TEMP 36.4; O2SAT 87–100
--- NOTE | ~2024-04-07 | US_ITS ---
EXAMINATION: US OB limited w BPP DATE: 04/07/2024 18:02 INDICATION: Nonreassuring nonstress test. Third trimester. TECHNIQUE: Real-time pelvic ultrasound was performed. COMPARISON: None. FINDINGS: There is a single living fetus in breech presentation. The placenta is anterior. heart rate is 125 beats per minute (bpm). The amniotic fluid index is 11.4 cm, which is normal. Biophysical profile performed by the technologist: breathing (30 sec sustained breathing in 30 minutes): 0 out of 2 movement (3 gross body movements in 30 minutes): 2 out of 2 tone (one episode of zgtljok-rroscpcyb-[id number] limb movement): 2 out of 2 Amniotic fluid pocket (2 cm): 2 out of 2 Total score: 6 out of 8 IMPRESSION: 1. Single living fetus in breech presentation. 2. Biophysical profile 6 out of 8. Reviewed, dictated and finalized at location E.
--- NOTE | 2024-04-07 16:36 | PC.NURSE ---
pt sent from the [facility] office. Report taken from Carrol SORIA. Pt take methadone BID. pt has taken 125mg this AM and 135mg @ 1315 this afternoon. Pt has heart rate in the 50-60s for roughly 4 min in the office before increasing to low 100's to 120's. BPP 2/8 (2 for fluid only) in [facility] office. KATIE 11.0 cm. pt states she isnt feeling baby move much but usually doesnt feel baby move much after her afternoon dose of Methadone.
--- NOTE | 2024-04-07 17:46 | PC.NURSE ---
Erik Davies at the bedside. CNM preforming bedside ultrasound heart tones down in the 40s. pt placed on her right side. Heart tones slowly coming up. Provider continues to be at the bedside.
--- NOTE | 2024-04-07 18:08 | PC.NURSE ---
Ultrasound at the bedside preforming BPP.
[2024-04-07] MEDS: LACTATED RINGERS 1,000 ML 125 ML IV CONT ×2 (18:15→22:30)
--- NOTE | 2024-04-07 18:22 | PM.IMHP ---
H&P: HPI History of Present Illness Date/Time: 04/07/24 18:22 Chief Complaint: 2/10 BPP Narrative: Patient is a 28 year old at 32w3d who presented from [facility] for a 2/10 BPP. has been complicated by hx of opioid dependence, on methadone; obesity; bipolar disorder; and hx of preeclampsia with severe features. She was seen at [facility] today for weekly testing. She reports taking her methadone just prior to her monitoring. BPP was 2/10 with points for KATIE. She was sent to [place] for further monitoring. On presentation to labor and delivery, her baseline was reassuring. Repeat BPP was 6/8. When monitoring was restarted, a bradycardia was noted into the 50s. She was placed in right lateral position, and heart rate returned to normal. Review of Systems Review of Systems: All systems reviewed & are unremarkable except as noted in HPI and below PMFSH Past Medical History Medical History Anxiety Asthma Bipolar disorder Bleeding gums Depression Drug dependence GERD (gastroesophageal reflux disease) Headache High cholesterol IV drug user methamphetamines Nausea & vomiting Sleep disorder Surgical History Surgical History No pertinent past surgical history Family History Family History Grandparent Arthritis Diabetes mellitus Nerve disorder Mother Nerve disorder Accidental fentanyl overdose she from overdose Social History Social History Social History: Uses methamphetamine and fentanyl. She has 1 daughter which is being raised by the other grandmother. Lives with friends. [facility] also states that she smokes marijuana every day. She continues to smoke a pack a cigarettes a day. She is a full code she does not have a durable power erisa attorney for healthcare. Smoking packs per day: 1 Smoking cigarettes per day: 20.0 Years smoked: 10 Smoking pack-years: 10.00 Smoking status: Current some day smoker Alcohol intake: current Drinks per week: 1 Alcohol use details: Socially Substance use: current Substance use type: marijuana, amphetamines and opiates Other substance usage details: marijuana 04/24/2020; smokes a bowl a day; 02/2020 unsure of drugs used the Last use: 02/07/20 Gender identity (if verbalized by the patient): Female Sexual Orientation (if Verbalized by the Patient): Straight or Heterosexual Spiritual care concerns: No Meds Home Medications and Allergies Home Medications Medication Instructions Recorded Confirmed Type Cranberry Gummies 01/05/23 History 01/05/23 History diphenhydramine HCl 25 mg capsule 25 - 50 mg PO TID PRN anxiety #15 01/05/23 Rx (Benadryl) caps folic acid 01/05/23 History metoclopramide HCl 10 mg tablet 10 mg PO Q6H PRN nausea and 01/05/23 Rx (Reglan) vomiting #15 tabs Allergies Allergy/AdvReac Type Severity Reaction Status Date / Time No Known Allergies Allergy Verified 01/05/23 14:11 Vital Signs Vital Signs - 24 hr 04/07/24 17:55 04/07/24 18:00 04/07/24 18:05 Pulse Oximetry 100 100 100 04/07/24 18:10 04/07/24 18:15 04/07/24 18:20 Pulse Oximetry 100 100 100 Exam Const: General: comfortable and no acute distress HENMT: Mouth: Yes moist mucous membranes Resp: Effort & Inspection: normal respiratory effort Cardio: Rate: regular rate Rhythm: regular rhythm Skin: General skin exam: normal color Psych: Mental Status: mental status grossly normal Assessment and Plan Assessment and plan (1) bradycardia, antepartum condition or complication: Code(s): O36.8390 - Maternal care for abnormalities of the heart rate or rhythm, unspecified trimester, not applicable or unspecified Status: Acute Assessment and Plan: - bradycar
[2024-04-07 18:32] LABS: Basophils Percent Auto 0.2 % (0.2-1.2); Eosinophils Percent Auto 0.2 % (0-4.4); Hematocrit 36.9 % (37.0-47.0); Hemoglobin 12.4 g/dL (12.0-15.0); Immature Granulocyte Absolute 0.03 K/mm3 (0.00-0.031); Immature Granulocyte Percent A 0.2 % (0-0.5); Lymphocytes Absolute Auto 2.24 K/mm3 (0.9-3.2); Lymphocytes Percent Auto 18.4 % (18.3-44.2); Mean Corpuscular HGB Conc 33.6 g/dl (32-36); Mean Corpuscular Hemoglobin 29.8 pg (26-34); Mean Corpuscular Volume 88.7 fl (80-100); Mean Platelet Volume 10.7 fl (7.4-10.4); Monocytes Absolute Auto 0.7 K/mm3 (0.1-0.6); Monocytes Percent Auto 5.4 % (2.6-8.5); Neutrophils Absolute Auto 9.2 K/mm3 (1.3-6.7); Neutrophils Percent Auto 75.6 % (45.5-73.1); Platelet Count Result 208 k/mm3 (150-375); Red Blood Count 4.16 M/mm3 (4.2-5.4); Red Cell Distribution Width 14.1 % (11.5-14.5); White Blood Count 12.2 K/mm3 (4.5-10.0)
[2024-04-07] MEDS: BETAMETHASONE SOD PHOS/ACETATE 30 MG/5 ML VIAL 12 MG IM (19:46)
[2024-04-07] MEDS: ONDANSETRON INJ 4 MG/2 ML VIAL IV PUSH (20:18)
[2024-04-07 20:36] LABS: Rapid Plasma Reagin Non-Reactive (NonReactive)
--- NOTE | 2024-04-07 22:45 | OBADM ---
This patient, Edward Eaton, admitted to the OB room OB Post 115 for observation. Patient/family oriented to hospital policies and general routines including ID bracelet, bed and alarms, visiting hours, pain management, procedures, bathroom and other care routines, personal items, smoking policy, room service/diet, and visiting hours. Patient/Family are encouraged to report perceived risks to care and to ask questions if they do not understand what they are told or what they should do.
[2024-04-08] VITALS (153 sets, daily range): BP systolic 100–151; BP diastolic 61–97; PULSE 29–106; TEMP 36.6–36.8; O2SAT 97–100
[2024-04-08] MEDS: ONDANSETRON INJ 4 MG/2 ML VIAL IV PUSH ×2 (04:20→08:48)
[2024-04-08] MEDS: LACTATED RINGERS 1,000 ML 125 ML IV CONT (06:30)
[2024-04-08] MEDS: methADONE HCL (*CRX) 5 MG TABLET PO ×2 (07:40→08:47)
[2024-04-08] MEDS: methADONE HCL (*CRX) 10 MG TABLET 120 MG PO (07:40)
--- NOTE | 2024-04-08 08:23 | PC.NURSE ---
0740--Pt vomited immediately after receiving AM dose of 125mg Methadone. Retrieved from trash and disposed of properly.
--- NOTE | 2024-04-08 08:27 | PC.NURSE ---
804--Pharmacy updated on dose of Methadone that was vomited. Directed to call physician for dosing instructions.
--- NOTE | 2024-04-08 08:29 | PC.NURSE ---
0815--Dr. Shepherd updated on loss of Methadone dose per vomit. Order given to cut AM dose of 125mg in half and monitor FHT's for 1.5 hours and then give second half of AM dose if FHT's remain WNL.
[2024-04-08] MEDS: methADONE HCL (*CRX) 10 MG TABLET 60 MG PO (08:48)
--- NOTE | 2024-04-08 09:32 | PC.NURSE ---
0910--Vomited 100ml yellowish emesis. No visible tablets seen in emesis.
--- NOTE | 2024-04-08 09:40 | PC.NURSE ---
0925-- in unit. Report given.
--- NOTE | 2024-04-08 10:02 | PM.IMHP ---
H&P: HPI History of Present Illness Date/Time: 04/08/24 10:02 Chief Complaint: nonreassuring heart tones Narrative: 28-year-old 4 para 2011 at 32 weeks and 4 days gestation. She is dated by a 6 week ultrasound. Congruent with unsure LMP. Originally presented to [facility]aternal Medicine outpatient office for testing. She had some very nonreassuring testing with a BPP of 2/10. She had just taken methadone dose. She had a heart rate deceleration in the office. She was sent to Labor and delivery at [facility]. She had some reassuring heart rate tracings here as time went on. However upon close observation through the night she had some prolonged heart rate decelerations into the 70s. At this time she has reassuring. We have sought a transfer to tertiary care center -[facility] /[facility]/ [facility].. It is been accepted by Dr. Enriquez. Patient received steroids at 7:00 p.m. yesterday. She has history of severe preeclampsia, tobacco and marijuana use. She is bipolar. Review of Systems Review of Systems: All systems reviewed & are unremarkable except as noted in HPI and below Constitutional: Constitutional: Denies chills, Denies fatigue, Denies fever(s) and Denies weakness Eyes: Eyes: Denies blurry vision, Denies change in vision, Denies loss of peripheral vision, Denies loss of vision, Denies other visual disturbances and Denies eye pain ENT: Denies vertigo, Denies dizziness, Denies hearing loss, Denies mouth pain, Denies nasal obstruction, Denies neck mass and Denies neck pain Cardiovascular: Cardiovascular: Denies chest pain, Denies diaphoresis, Denies syncope, Denies leg edema and Denies dyspnea Respiratory: Respiratory: Denies chest congestion, Denies cough, Denies hemoptysis, Denies dyspnea and Denies wheezing Gastrointestinal: Gastrointestinal: Denies abdominal pain, Denies constipation, Denies diarrhea, Denies nausea and Denies vomiting Genitourinary: Genitourinary: Denies hematuria, Denies change in libido, Denies nocturia, Denies genital lesions, Denies flank pain and Denies urinary urgency Musculoskeletal: Musculoskeletal: Denies abnormal gait, Denies back pain, Denies myalgias, Denies arthralgias, Denies joint swelling, Denies muscle weakness and Denies neck pain Integumentary/Breasts: Skin/Breast: Denies swelling, Denies breast pain, Denies breast mass, Denies dry skin, Denies nipple discharge, Denies unusual bruising and Denies jaundice Neurologic: Denies Neuro-related abnormal movements, Denies Abnormal speech present, Denies abnormal gait, Denies behavioral changes, Denies confusion, Denies vertigo, Denies dizziness, Denies syncope, Denies loss of vision, Denies memory loss, Denies convulsions and Denies weakness Psychiatric: Psychiatric: Denies abnormal sleep pattern, Denies behavioral changes, Denies change in libido, Denies confusion, Denies depression, Denies anhedonia and Denies memory loss Endocrine: Endocrine: Reports no additional endocrine complaints, Denies change in libido and Denies fatigue Hematologic/Lymphatic: Hematologic/Lymphatic: Reports no additional hematologic/lymphatic complaints Allergic/Immunologic: Allergic/Immunologic: Reports no additional allergic/immunologic complaints and Denies wheezing PMFSH Past Medical History Medical History Anxiety Asthma Bipolar disorder Bleeding gums Depression Drug dependence GERD (gastroesophageal reflux disease) Headache High cholesterol IV drug user methamphetamines Nausea & vomiting Sleep disorder Surgical History Surgical History No pertinent past surgical history Family History Family History Grandparent Arthritis Diabetes mellitus Nerve disorder Mother Nerve disorder Accidental fentanyl overdose she from overdose
--- NOTE | 2024-04-08 10:16 | PM.TDS ---
Transfer Discharge Sum: Prov Provider Date of admission: 04/07/24 17:45 Primary care physician: UNKNOWN,DOCTOR Admitting clinician: Shar Shepherd MD Consults: Dr. Enriquez Attending physician on discharge: Shar Shepherd Receiving physician/facility: [facility] DS: Admitting Diagnosis Discharge Date April 08, 2024 Admitting Diagnosis nonreassuring heart tones DS: Discharge Diagnosis Discharge Diagnosis (1) Bipolar 1 disorder: Code(s): F31.9 - Bipolar disorder, unspecified Status: Acute (2) Methadone dependence: Code(s): F11.20 - Opioid dependence, uncomplicated Status: Acute (3) Hx of opioid abuse: Code(s): F11.11 - Opioid abuse, in remission Status: Acute (4) History of pre-eclampsia in prior , currently : Code(s): O09.299 - Supervision of with other poor reproductive or obstetric history, unspecified trimester Status: Acute Transfer Discharge Sum: Med Medications Active and Home Medications: Home Medications Cranberry Gummies 01/05/23 [History] 01/05/23 [History] diphenhydramine HCl 25 mg capsule (Benadryl) 25 - 50 mg PO TID PRN anxiety #15 caps 01/05/23 [Rx] folic acid 01/05/23 [History] metoclopramide HCl 10 mg tablet (Reglan) 10 mg PO Q6H PRN nausea and vomiting #15 tabs 01/05/23 [Rx] Active Medications Lactated Ringer's (Lr - Lactated Ringers Iv) 1,000 mls @ 125 mls/hr IV CONT .Q8H ROSENDA Last Admin: 04/08/24 06:30 Dose: 125 mls/hr Methadone HCl (Methadone Hcl (*Crx) 10 Mg Tablet) 120 mg PO 0730 ROSENDA Last Admin: 04/08/24 07:40 Dose: 120 mg Methadone HCl (Methadone Hcl (*Crx) 5 Mg Tablet) 5 mg PO 0730 ROSENDA Last Admin: 04/08/24 07:40 Dose: 5 mg Methadone HCl (Methadone Hcl (*Crx) 5 Mg Tablet) 5 mg PO 1330 ROSENDA Methadone HCl (Methadone Hcl (*Crx) 10 Mg Tablet) 130 mg PO 1330 ROSENDA Ondansetron HCl (Ondansetron Inj 4 Mg/2 Ml Vial) 4 mg IV PUSH Q6H PRN PRN Reason: Nausea And Vomiting Last Admin: 04/08/24 08:48 Dose: 4 mg Transfer Discharge Sum: Hosp Hospital Course Hospital course: Edward Eaton is a 28 year old female 28-year-old 4 para 2011 at 32 weeks and 4 days gestation. She is dated by a 6 week ultrasound. Congruent with unsure LMP. Originally presented to Maternal Medicine outpatient office for testing. She had some very nonreassuring testing with a BPP of 2/10. She had just taken methadone dose. She had a heart rate deceleration in the office. She was sent to Labor and delivery at [facility]. She had some reassuring heart rate tracings here as time went on. However upon close observation through the night she had some prolonged heart rate decelerations into the 70s. At this time she has reassuring. We have sought a transfer to tertiary care center -[facility]/ [facility].. It is been accepted by Dr. Enriquez. Patient received steroids at 7:00 p.m. yesterday. She has history of severe preeclampsia, tobacco and marijuana use. She is bipolar. Time Spent with Patient Time attestation: Total time spent providing and/or coordinating transfer services: DS: Data Data Completed and Pending Labs on day of discharge: Labs from last 24 hours 04/07/24 18:22 WBC 12.2 H RBC 4.16 L Hgb 12.4 Hct 36.9 L MCV 88.7 MCH 29.8 MCHC 33.6 RDW 14.1 Plt Count 208 MPV 10.7 H Immature Gran % (Auto) 0.2 Neut % (Auto) 75.6 H Lymph % (Auto) 18.4 [place] % (Auto) 5.4 Eos % (Auto) 0.2 Baso % (Auto) 0.2 Lymph # (Auto) 2.24 [place] # (Auto) 0.7 H Eos # (Auto) 0.0 Baso # (Auto) 0.0 Abs Immat Gran (auto) 0.03 Absolute Neuts (auto) 9.2 H Absolute Nucleated RBC 0.000 Nucleated RBC % 0.0 RPR Non-reactive Blood Type A Positive
--- NOTE | 2024-04-08 13:10 | PC.NURSE ---
1121--FHT's during transport 130-134 per doppler 1136--FHT's during transport for one minute 127-140 per doppler
--- NOTE | 2024-04-08 13:32 | PC.NURSE ---
Addendum entered by Glenda Garcia RN 04/08/24 13:34: Time should read [id number] Original Note: 025--[facility]
== END 2024-04-08 11:17 | disposition short-term general hospital (02) ==
PROVIDERS: Advanced Practice Midwife; Admitting Provider Obstetrics & Gynecology; Visit Provider Obstetrics & Gynecology
DX: O36.8330 Maternal care for abnormalities of the fetal heart rate or rhythm, third trimester, not applicable or unspecified (principal); O09.293 Supervision of pregnancy with other poor reproductive or obstetric history, third trimester; O99.333 Smoking (tobacco) complicating pregnancy, third trimester; F17.210 Nicotine dependence, cigarettes, uncomplicated; O99.323 Drug use complicating pregnancy, third trimester; F11.20 Opioid dependence, uncomplicated; O99.343 Other mental disorders complicating pregnancy, third trimester; F31.9 Bipolar disorder, unspecified; Z3A.32 32 weeks gestation of pregnancy
CPT/HCPCS: 36415; 76815; 76819; 85025; 86592; 86900; 86901; 96361; 96372; 96374; 96376; A9270; G0378; G0379; J0702; J2405; J7120

== ENCOUNTER 2024-04-28 15:52 | Outpatient (CLI) | payer OTHER, SELFPAY ==
--- NOTE | ~2024-04-28 | US_ITS ---
EXAMINATION: US OB BPP wo non-stress DATE: 04/28/2024 18:33 INDICATION: Nonreactive nonstress test and 01/02 biophysical profile TECHNIQUE: Real-time pelvic ultrasound was performed. The interpreting radiologist was not present fo r the study. COMPARISON: 04/28/2024 FINDINGS: There is a single living fetus in breech presentation. The placenta is anterior. heart rate is 121 beats per minute (bpm). Oligohydramnios with amniotic fluid index of 7.5 cm (5th%-95%: 7.9-24.9 cm at 35 weeks estimated gestational age) Biophysical profile performed by the technologist: breathing (30 sec sustained breathing in 30 minutes): 2 out of 2 movement (3 gross body movements in 30 minutes): 2 out of 2 tone (one episode of onlrjyl-tkqusbmds-myubgpl limb movement): 2 out of 2 Amniotic fluid pocket (2 cm): 2 out of 2 Total score: 8 out of 8 IMPRESSION: 1. Single living fetus in breech presentation with heart rate of 121 bpm. 2. Biophysical profile 8 out of 8. 3. Oligohydramnios with amniotic fluid index of 7.5 cm . Reviewed, dictated and finalized at location A.
[2024-04-28 17:15] VITALS: BP 125/73; PULSE 86
--- NOTE | 2024-04-28 17:19 | PC.NURSE ---
1700: Patient arrived back on unit from ultrasound. Ultrasound called RN to inform her that ultrasound was not able to get breathing or movement. RN will be placed on monitor. Patient states she has not ate all day. 1710: RN phoned Dr. Shepherd to inform him that patient had a 4 out of 8 for BPP, 0 for breathing, and movement. Orders to get an NST on patient. OB aware that patient is requesting to leave AMA. OB wants RN to strongly recommend not leaving AMA. RN asked if patient can eat any food and OB stated she can eat at this time 1715: RN phoned OB to inform him that patient agreed to stay, Patient is eating at this time.RN asked OB if he would like an IV or extended monitoring at this time, OB declined both at this time. PIH labs will be drawn. Orders to get NST and if a significant movement is noted get another BPP ALMA.
[2024-04-28 17:52] LABS: Add Urine Microscopic? NO; Appearance Urine Clear (Clear); Bilirubin Urine Negative (Negative); Blood Urine Negative (Negative); Color Urine Yellow (Yellow); Glucose Urine UA Negative (Negative); Ketones Urine Negative (Negative); Leukocyte Esterase Ur Negative LEU/UL (Negative); Nitrate Urine Negative (Negative); Protein Urine Negative (Negative); Specific Grav Ur 1.004 (1.001-1.035)
[2024-04-28 17:53] LABS: Basophils Percent Auto 0.2 % (0.2-1.2); Eosinophils Percent Auto 0.1 % (0-4.4); Hematocrit 36.7 % (37.0-47.0); Hemoglobin 11.5 g/dL (12.0-15.0); Immature Granulocyte Absolute 0.03 K/mm3 (0.00-0.031); Immature Granulocyte Percent A 0.3 % (0-0.5); Immature Platelet Fraction Pct 7.3 % (0.9-11.2); Lymphocytes Absolute Auto 1.82 K/mm3 (0.9-3.2); Lymphocytes Percent Auto 17.9 % (18.3-44.2); Mean Corpuscular HGB Conc 31.3 g/dl (32-36); Mean Corpuscular Hemoglobin 30.3 pg (26-34); Mean Corpuscular Volume 96.6 fl (80-100); Mean Platelet Volume 10.8 fl (7.4-10.4); Monocytes Absolute Auto 0.6 K/mm3 (0.1-0.6); Monocytes Percent Auto 5.5 % (2.6-8.5); Neutrophils Absolute Auto 7.7 K/mm3 (1.3-6.7); Platelet Count Result 159 k/mm3 (150-375); Red Cell Distribution Width 15.4 % (11.5-14.5); White Blood Count 10.1 K/mm3 (4.5-10.0)
[2024-04-28 18:04] LABS: Creatinine Urine 41.5 mg/dL; Total Protein Urine Random 15 mg/dL; Ur Ttl Prot Creatinine Ratio 0.36 mg/mg (0-0.20)
[2024-04-28 18:06] LABS: Alanine Aminotransferase 10 U/L (6-35); Albumin Level 3.4 g/dL (3.5-5.1); Alkaline Phosphatase 108 U/L (38-126); Anion Gap 10 mmol/L (4-12); Aspartate Amino Transferase 15 U/L (14-36); Bilirubin,Total 0.2 mg/dL (0.2-1.3); Blood Urea Nitrogen 2 mg/dL (7-17); Calcium 8.7 mg/dL (8.4-10.2); Carbon Dioxide 23 mmol/L (22-30); Chloride 100 mmol/L (98-107); Estimated Glomerular Filt Rate > 60; Glucose 86 mg/dL (65-110); Sodium 133 mmol/L (137-145); Uric Acid 5.9 mg/dL (2.5-7.5)
[2024-04-28 18:29] VITALS: BP 125/73; PULSE 86
--- NOTE | 2024-04-28 18:41 | PC.NURSE ---
1834: RN phoned OB to inform him of patient's recent BPP of 8/, a reactive NST, and PIH labs. Orders to discharge patient home with instruction to make an appointment on Wednesday, patient agreeable.
== END 2024-04-29 17:00 | disposition home or self-care (01) ==
LOC: ANHOBOP 16:13 → ANHLDR 16:14
PROVIDERS: Visit Provider Obstetrics & Gynecology
DX: O13.9 Gestational [pregnancy-induced] hypertension without significant proteinuria, unspecified trimester (principal); Z3A.00 Weeks of gestation of pregnancy not specified
CPT/HCPCS: 36415; 59025; 76819; 80053; 81003; 82570; 84156; 84550; 85025; 85055; 99199

== ENCOUNTER 2024-04-28 15:52 | Outpatient (RCR) | payer OTHER, SELFPAY ==
[2024-04-17 18:34] VITALS: BP 112/59; PULSE 79
--- NOTE | 2024-04-17 19:14 | PC.NURSE ---
Called Dr. Shepherd, update on pt, BPP, tracing, variable deceleration, and blood pressure. Orders received to discharge pt when tracing is reactive with instructions on to keep next scheduled appointment and when to return to the unit.
[2024-04-17 19:46] VITALS: PULSE 66
--- NOTE | ~2024-04-28 | US_ITS ---
EXAMINATION: US OB BPP wo non-stress DATE: 04/28/2024 17:09 INDICATION: Nonreactive nonstress test. Third trimester. TECHNIQUE: Real-time pelvic ultrasound was performed. COMPARISON: Ultrasound 04/17/2024 FINDINGS: There is a single living fetus in breech presentation. The placenta is anterior. heart rate is 121 beats per minute (bpm). The deepest vertical pocket is 5.3 cm, which is normal. Biophysical profile performed by the technologist: breathing (30 sec sustained breathing in 30 minutes): 0 out of 2 movement (3 gross body movements in 30 minutes): 0 out of 2 tone (one episode of gwhpgxg-bxssnokpz-fgeshwm limb movement): 2 out of 2 Amniotic fluid pocket (2 cm): 2 out of 2 Total score: 4 out of 8 IMPRESSION: 1. Single living fetus in breech presentation. 2. Biophysical profile 4 out of 8. Reviewed, dictated and finalized at location A.
--- NOTE | ~2024-04-28 | US_ITS ---
EXAMINATION: US OB BPP wo non-stress DATE: 04/17/2024 18:54 INDICATION: Y . TECHNIQUE: Real-time ultrasound of the pelvis was performed. COMPARISON: 04/07/2024 FINDINGS: There is a single living fetus in breech presentation, longitudinal lie. The placenta is anterior. F etal heart rate is 122 bpm. The deepest vertical amniotic fluid pocket measures 2.4 cm. Biophysical profile performed by the technologist: breathing (30 sec sustained breathing in 30 minutes): 2 out of 2. movement (3 gross body movements in 30 minutes: 2 out of 2. tone (one episode of aexodqm-blvcobhvl-buqbkuv limb movement): 2 out of 2. Amniotic fluid pocket (2 cm): 2 out of 2. Total score: 8 out of 8. IMPRESSION: Single living fetus in breech presentation. Biophysical profile 8 out of 8. DVT 2.4 cm. Amniotic fluid volume is subjectively low in this examination. Reviewed, dictated and finalized at location K.
== END 2024-07-16 23:59 | disposition home or self-care (01) ==
LOC: ANHOBOP 15:52
PROVIDERS: Visit Provider Obstetrics & Gynecology
DX: O26.893 Other specified pregnancy related conditions, third trimester (principal); Z3A.33 33 weeks gestation of pregnancy
CPT/HCPCS: 59025; 76819; J2274

== ENCOUNTER 2024-04-30 21:54 | Inpatient (IN) | payer OTHER, SELFPAY ==
[2024-04-30 22:26] VITALS: BP 137/86; PULSE 76
[2024-04-30 22:30] VITALS: BP 119/74; PULSE 73
[2024-04-30 22:45] VITALS: BP 110/53; PULSE 63
[2024-04-30 23:00] VITALS: BP 107/67; PULSE 62
[2024-04-30 23:15] VITALS: BP 106/70; PULSE 60
[2024-05-01] VITALS (65 sets, daily range): BP systolic 120–172; BP diastolic 71–114; PULSE 55–103; RESP 13–18; TEMP 36.2–36.9; O2SAT 98–100
--- NOTE | 2024-05-01 00:41 | P.PNAN_ITS ---
Anes - Eval Pre Procedure Procedure: Operation Date: 05/01/24 00:40 Proposed Procedures p Section - Shar Shepherd MD Date/Time: 05/01/24 00:41 Surgeon: Cora Pre Op Diagnosis: Bleeding Patient Data Age: 28 Gender: F Height: Weight: 105.687 kg Last Vital Signs Pulse 60 04/30/24 23:15 BP 106/70 04/30/24 23:15 Allergies Allergy/AdvReac Type Severity Reaction Status Date / Time No Known Allergies Allergy Verified 01/05/23 14:11 Home Medications Medication Instructions Recorded Confirmed Type Cranberry Gummies 01/05/23 History 01/05/23 History metoclopramide HCl 10 mg tablet 10 mg PO Q6H PRN nausea and 01/05/23 Rx (Reglan) vomiting #15 tabs albuterol sulfate 90 mcg/actuation 2 puff inhalation QID PRN Wheezing 04/29/24 04/29/24 History aerosol inhaler methadone 04/29/24 History Patient hx anesthesia problems: none Family hx anesthesia problems: none Results Review: All pre-operative results and documents have been reviewed as part of the pre- operative evaluation. [facility] Past Medical History Medical History Anemia Anxiety Asthma Bipolar 1 disorder Bipolar disorder Bleeding gums Depression Drug dependence GERD (gastroesophageal reflux disease) Headache High cholesterol History of pre-eclampsia in prior , currently Hx of opioid abuse IV drug user methamphetamines Methadone dependence Nausea & vomiting and not yet delivered Sleep disorder Surgical History Surgical History No pertinent past surgical history Family History Family History Grandparent Arthritis Diabetes mellitus Nerve disorder Mother Nerve disorder Accidental fentanyl overdose she from overdose Social History Social History Social History: Uses methamphetamine and fentanyl. She has 1 daughter which is being raised by the other grandmother. Lives with friends. [facility] also states that she smokes marijuana every day. She continues to smoke a pack a cigarettes a day. She is a full code she does not have a durable power deputy commonwealth's attorney for healthcare. Smoking packs per day: 1 Smoking cigarettes per day: 20.0 Years smoked: 10 Smoking pack-years: 10.00 Smoking status: Current some day smoker Alcohol intake: current Drinks per week: 1 Alcohol use details: Socially Substance use: former Substance use type: marijuana, amphetamines and opiates Other substance usage details: fentanyl Last use: 6 months ago, currently on methadone program Gender identity (if verbalized by the patient): Female Sexual Orientation (if Verbalized by the Patient): Straight or Heterosexual Spiritual care concerns: No Exam Day of Procedure 05/01/24 00:41 Patient weight: obese Heart: regular rate and rhythm Lungs: decreased breath sounds Airway: Mallampati scale class III Neurological: alert and oriented
[2024-05-01] MEDS: LACTATED RINGERS 1,000 ML 125 ML IV CONT (00:42)
[2024-05-01 00:44] LABS: Basophils Percent Auto 0.3 % (0.2-1.2); Eosinophils Absolute Auto 0.1 K/mm3 (0-0.3); Eosinophils Percent Auto 0.6 % (0-4.4); Hematocrit 35.5 % (37.0-47.0); Hemoglobin 11.9 g/dL (12.0-15.0); Immature Granulocyte Absolute 0.04 K/mm3 (0.00-0.031); Immature Granulocyte Percent A 0.3 % (0-0.5); Lymphocytes Absolute Auto 3.24 K/mm3 (0.9-3.2); Lymphocytes Percent Auto 26.1 % (18.3-44.2); Mean Corpuscular HGB Conc 33.5 g/dl (32-36); Mean Corpuscular Hemoglobin 30.1 pg (26-34); Mean Corpuscular Volume 89.9 fl (80-100); Mean Platelet Volume 11.4 fl (7.4-10.4); Monocytes Absolute Auto 0.8 K/mm3 (0.1-0.6); Monocytes Percent Auto 6.1 % (2.6-8.5); Neutrophils Absolute Auto 8.3 K/mm3 (1.3-6.7); Neutrophils Percent Auto 66.6 % (45.5-73.1); Platelet Count Result 173 k/mm3 (150-375); Red Blood Count 3.95 M/mm3 (4.2-5.4); Red Cell Distribution Width 15.2 % (11.5-14.5); White Blood Count 12.4 K/mm3 (4.5-10.0)
[2024-05-01] MEDS: ACETAMINOPHEN 500 MG TABLET 1000 MG PO (00:44)
[2024-05-01] MEDS: FAMOTIDINE 20 MG/2 ML VIAL IV PUSH (00:47)
--- NOTE | 2024-05-01 00:54 | PM.IMHP ---
H&P: HPI History of Present Illness Date/Time: 05/01/24 00:54 Chief Complaint: Vaginal bleeding Narrative: 28-year-old multiparous female at 35 weeks and 6 days presented with vaginal bleeding. She quickly developed some uterine contractions, and got into active labor. known to be breech, to proceed with delivery immediately. The patient understands the details of the procedure. The procedure has been explained in detail. She understands the risks. She understands that injuries may occur that result in hospitalization, more surgery, and severe illness. She understands risk of hemorrhage and infection. She denies any chest pain or shortness of breath. She denies any nausea, vomiting, fever, chills. Review of Systems Review of Systems: All systems reviewed & are unremarkable except as noted in HPI and below Constitutional: Constitutional: Denies chills, Denies fatigue, Denies fever(s) and Denies weakness Eyes: Eyes: Denies blurry vision, Denies change in vision, Denies loss of peripheral vision, Denies loss of vision, Denies other visual disturbances and Denies eye pain ENT: Denies vertigo, Denies dizziness, Denies hearing loss, Denies mouth pain, Denies nasal obstruction, Denies neck mass and Denies neck pain Cardiovascular: Cardiovascular: Denies chest pain, Denies diaphoresis, Denies syncope, Denies leg edema and Denies dyspnea Respiratory: Respiratory: Denies chest congestion, Denies cough, Denies hemoptysis, Denies dyspnea and Denies wheezing Gastrointestinal: Gastrointestinal: Denies abdominal pain, Denies constipation, Denies diarrhea, Denies nausea and Denies vomiting Genitourinary: Genitourinary: Denies hematuria, Denies change in libido, Denies nocturia, Denies genital lesions, Denies flank pain and Denies urinary urgency Musculoskeletal: Musculoskeletal: Denies abnormal gait, Denies back pain, Denies myalgias, Denies arthralgias, Denies joint swelling, Denies muscle weakness and Denies neck pain Integumentary/Breasts: Skin/Breast: Denies swelling, Denies breast pain, Denies breast mass, Denies dry skin, Denies nipple discharge, Denies unusual bruising and Denies jaundice Neurologic: Denies Neuro-related abnormal movements, Denies Abnormal speech present, Denies abnormal gait, Denies behavioral changes, Denies confusion, Denies vertigo, Denies dizziness, Denies syncope, Denies loss of vision, Denies memory loss, Denies convulsions and Denies weakness Psychiatric: Psychiatric: Denies abnormal sleep pattern, Denies behavioral changes, Denies change in libido, Denies confusion, Denies depression, Denies anhedonia and Denies memory loss Endocrine: Endocrine: Reports no additional endocrine complaints, Denies change in libido and Denies fatigue Hematologic/Lymphatic: Hematologic/Lymphatic: Reports no additional hematologic/lymphatic complaints Allergic/Immunologic: Allergic/Immunologic: Reports no additional allergic/immunologic complaints and Denies wheezing PMFSH Past Medical History Medical History Anemia Anxiety Asthma Bipolar 1 disorder Bipolar disorder Bleeding gums Depression Drug dependence GERD (gastroesophageal reflux disease) Headache High cholesterol History of pre-eclampsia in prior , currently Hx of opioid abuse IV drug user methamphetamines Methadone dependence Nausea & vomiting and not yet delivered Sleep disorder Surgical History Surgical History No pertinent past surgical history Family History Family History Grandparent Arthritis Diabetes mellitus Nerve disorder Mother Nerve disorder Accidental fentanyl overdose she from overdose Social History Social History Social History: Uses methamphetamine
[2024-05-01] MEDS: ONDANSETRON INJ 4 MG/2 ML VIAL IV PUSH (00:55)
--- NOTE | 2024-05-01 00:58 | WPDHPUPDATE1 ---
History and Physical Update Update Date/Time: 05/01/24 00:58 History and Physical has been reviewed, including an updated exam of the patient. There are NO changes in the patient's condition. Risks, benefits, and alternatives have been discussed and questions answered. Patient agrees to proceed with procedure.
[2024-05-01 01:36] LABS: HIV 1/2 Ab P24 Ag Result Negative (Negative)
--- NOTE | 2024-05-01 01:58 | PC.NURSE ---
This RN consulted pharmacy to verify appropriate dosing times for pt due to late morning administration. Pharmacy recommended a minimum of 3-4 hours but questioned the large dose in such a short amount of time, suggested that the clinic be called to verify dosing. This RN spoke with patient regarding dosing, patient provided this RN with a letter form [facility] verifying that patient takes a dose of 125 mg in the morning and 145 mg in the afternoon. Exact dose times were not given. This RN contacted Freida at the clinic who was listed as the POC on the letter. Freida verified that patient typically takes first dose between 6:00-9:00 AM and the afternoon dose 3-4 hours later.
--- NOTE | 2024-05-01 02:03 | W.PM.OBCSD ---
OB - Delivery Note Procedure Delivery date: 05/01/24 Pre-op diagnosis: Breech Presentation and Other ( labor) Post-op Diagnosis: Same Procedure Performed: Primary Surgeon: Shar Shepherd MD Anesthesia type: Spinal Description of Procedure/Findings: The patient was taken the operating room.? She was prepped and draped in dorsal supine position with a leftward tilt.? This was done after spinal anesthetic was applied.? A low-transverse skin incision was made and carried down till of the fascia with the knife.? The fascial incision was made with the knife.? The fascial incision was extended laterally with Gotti scissors.? The fascia was tented upward superiorly and inferiorly the rectus muscles were dissected off bluntly.? The rectus muscles were the midline.? The preperitoneal fat and peritoneum were dissected open bluntly at the superior aspect of the rectus muscles.? The peritoneal incision was extended superior and inferior with good position of bladder.? The uterine incision was made with a scalpel down to the level of the amniotic cavity.? The amniotic cavity was entered bluntly.? The infant was delivered in typical breech fashion. There was some dystocia with the head and a contracted lower uterine segment. a small vertical incision was made in the lower uterine segment Using bandage scissors..? The cord was clamped and cut and the infant was handed off to waiting pediatric staff.? Cord bloods were obtained.? The placenta was removed manually.? The uterus was exteriorized.? The uterus was cleared of all clots, debris and membranes.? The uterus was closed in 0 Vicryl running lock fashion.? An imbricating over a was placed along the incision line as well.? The uterus was returned to the abdomen.? The gutters were cleared of all clots and debris.? The fascia was closed with 0 Vicryl running fashion.? The subcutaneous tissue was irrigated pinpoint bleeders were cauterized.? The skin was closed with subcuticular absorbable mike.? The skin incision line was covered with glue.? The patient tolerated the procedure well.? She has taken recovery room in stable condition.? Sponge lap and needle counts were correct x2.? [place] Baby Date of : 05/01/24 Gestational Age by Date: 35
[2024-05-01] MEDS: MORPHINE SULFATE INJ (*CRX) 10 MG/ML AMP 2 MG IV PUSH ×3 (02:55→03:09)
[2024-05-01 03:05] LABS: Rapid Plasma Reagin Non-Reactive (NonReactive)
[2024-05-01] MEDS: KETOROLAC 30 MG/ML VIAL (*BKC) IV PUSH (03:35)
--- NOTE | 2024-05-01 04:36 | LDADM ---
This patient, Edward Eaton, was admitted to Labor/Delivery/Recovery 107 on 04/30/24 at 21:54. Plans for labor, pain management and were discussed with patient. Patient/family oriented to hospital policies and general routines including ID bracelet, bed and alarms, visiting hours, pain management, procedures, bathroom and other care routines, personal items, smoking policy, room service/diet and guest tray routines, security routines, and visiting hours. Patient/Family are encouraged to report perceived risks to care and to ask questions if they do not understand what they are told or what they should do. See OBIX for further documentation.
[2024-05-01] MEDS: HYDROcodone/acetaminophen (*CRX) 5-325 MG TABLET 1 TAB PO ×2 (05:05→23:45)
[2024-05-01] MEDS: LIDOCAINE 5% PATCH 1 PATCH TRANSDERM (05:33)
--- NOTE | 2024-05-01 06:34 | OBPPTRN ---
05/01/24 at 0512 Patient transferred to post room #288. Support person present. Patient oriented to unit, room, information board, rooming in, admission packet and security measures. Patient verbalizes understanding.
[2024-05-01] MEDS: ACETAMINOPHEN 325 MG TABLET 650 MG PO ×4 (06:42→23:45)
[2024-05-01] MEDS: DOCUSATE SODIUM 100 MG CAPSULE PO ×2 (06:42→17:35)
--- NOTE | 2024-05-01 07:30 | PC.NURSE ---
Spoke with patient this morning about her feeding goals for baby. Pt expressed her desire to breastfeed eventually. This RN took patient a pump and pump supplies, asked if she was ready to pump now and patient declined. This RN expressed importance of pumping every 3 hours to protect milk supply, pt verbalized understanding. Informed patient that when she was ready to pump to please let me know so this RN could assist in set up and education. Pt again verbalized understanding. This RN updated nurse Najma on situation.
[2024-05-01] MEDS: DEXTROSE 5%/0.45% SOD CHL 1,000 ML 125 ML IV CONT (08:19)
[2024-05-01] MEDS: MORPHINE SULFATE (*CRX) 2 MG/ML INJ IV PUSH (08:20)
[2024-05-01] MEDS: SIMETHICONE 80 MG TAB.CHEW PO ×3 (08:25→17:35)
--- NOTE | 2024-05-01 08:50 | PC.NURSE ---
Introductions were made, communication board updated with contact information. Mother informed this RN of her intentions to use a breast pump while at the hospital. Breast pump provided due to mothers request and transferred to [facility]. Patient denied needing additional education at this time stating This is my third kid, I know what to do . Patient instructed to call for assistance if there is any pain while pumping or any additional questions. Reported to the Primary RN.
[2024-05-01] MEDS: methADONE HCL (*CRX) 5 MG TABLET PO ×2 (09:15→14:04)
[2024-05-01] MEDS: MULTIVIT/MIN/PREN/FOL AC/IRON TABLET 1 TAB PO (09:15)
[2024-05-01] MEDS: methADONE HCL (*CRX) 10 MG TABLET 120 MG PO (09:16)
--- NOTE | 2024-05-01 12:00 | PC.NURSE ---
Loud yelling was heard coming from pt room, both pt and significant other yelling at each other. Belinda SORIA went into room to check on patient, patient stated that she was fine but needed pain medication. Once Belinda SORIA left, more yelling continued and seemed to be escalating. This RN called security to be on stand by. Significant other left the hospital shortly after security arrived on unit.
[2024-05-01] MEDS: KETOROLAC 15 MG/ML VIAL (*BKC) IV PUSH (12:11)
--- NOTE | 2024-05-01 12:30 | PC.NURSE ---
This RN spoke with patient and verified that it is okay for FOB to return to the room at this time.
--- NOTE | 2024-05-01 12:48 | PCCCNOTE ---
Addendum entered by Fiona Jackson, [facility] 05/01/24 14:49: Spoke with social service worker, Rekha, at [facility] to update. Addendum entered by Fionavadim Jackson, [facility] [place] 05/01/24 13:43: [facility] alarm investigator, Evelyn Monroe, called and will be seeing mother today Addendum entered by Fionavadim Jackson, [facility] [place] 05/01/24 13:08: Pt. and sig. other yelling in room as I was out at nurses station. They did calm down quickly before I left unit. RN, Analilia, aware of [facility] update. Original Note: Care Coordination Note. Patient referred to CC for drug use during and not having custody of other children. Met with pt. at bedside. Albaro PIERCE, was in shower. Pt. reports living home with her grandfather. FOB does not live with them. Pt. has history of fentanyl uses and reports has not used for several months. She has been following up with [facility] Methadone clinic and going to counseling 1x a week. She reports her one of her other children lives with a grandparent and the 3rd is in foster care. Umb cord testing pending for infant, but mother was not tested. RN reports FOB was upset this a.m. because mother did not notify him that baby was transferred, but mother reports unable to wake FOB to notify him of transfer. RN reports CLINICAL PARTNER from doctor's office made a [facility] report earlier in as well for pt. appearing high during a visit. Pt. states she is setup with WIC. Pt. did not want center or substance use information. Spoke with Caio Granger at [facility] hotline. He took situation as report intake ID#[id number]. Message left to notify [facility] social service worker of above. Pt. reports when released from here, she will go directly to [facility]. will follow.
[2024-05-01] MEDS: methADONE HCL (*CRX) 10 MG TABLET 140 MG PO (14:03)
--- NOTE | 2024-05-01 15:00 | PC.NURSE ---
DCF[facility] worker Evelyn Monroe visited with patient. Expressed that she would be following up with baby at [facility] tomorrow and that pt was okay to be discharged tomorrow is able. Evelyn provided her card with phone number . A copy was made of card and This RN placed card on patients chart.
[2024-05-01] MEDS: IBUPROFEN 600 MG TABLET PO ×2 (17:48→23:45)
[2024-05-02] MEDS: HYDROcodone/acetaminophen (*CRX) 5-325 MG TABLET 1 TAB PO (04:45)
[2024-05-02] MEDS: IBUPROFEN 600 MG TABLET PO (05:30)
[2024-05-02] MEDS: ACETAMINOPHEN 325 MG TABLET 650 MG PO (05:30)
[2024-05-02] MEDS: DOCUSATE SODIUM 100 MG CAPSULE PO (07:48)
[2024-05-02] MEDS: SIMETHICONE 80 MG TAB.CHEW PO (07:48)
[2024-05-02] MEDS: MULTIVIT/MIN/PREN/FOL AC/IRON TABLET 1 TAB PO (07:48)
[2024-05-02] MEDS: methADONE HCL (*CRX) 5 MG TABLET PO (07:48)
[2024-05-02] MEDS: methADONE HCL (*CRX) 10 MG TABLET 120 MG PO (07:48)
[2024-05-02 07:54] VITALS: BP 135/76; PULSE 84; RESP 18; TEMP 37; O2SAT 100
--- NOTE | 2024-05-02 09:38 | PM.OBPNVD ---
OB - PN: Subj Subjective Date/time seen: 05/02/24 09:38 Patient comments: no complaints, pain well controlled, incisional pain, tolerating diet and flatus present OB - PN: Obj Data Labs 05/01/24 00:39 OB - PN A/P Plan day: 2 Plan: routine care Comments: POD#2 LTCS - no problems, Time Spent With Patient Time: Total time spent is greater than 50% in coordination of care (as documented) at patient's floor/unit and/or counseling patient: Exam Const: General: comfortable, no acute distress and alert Resp: Effort & Inspection: normal respiratory effort Auscultation: no crackles, no rales and no rhonchi Cardio: Rate: regular rate Heart sounds: no click, no murmurs and no rubs GI: Inspection: non-distended Auscultation: normal bowel sounds Other: Incision - CDI Extrem: General: normal to inspection, no pedal edema and no calf tenderness
--- NOTE | 2024-05-02 09:38 | PM.OBDSVD ---
DS: Admitting Diagnosis Discharge Date May 02, 2024 Admitting Diagnosis term , labor, breech DS: Discharge Diagnosis Discharge Diagnosis (1) delivery delivered: Code(s): O82 - Encounter for delivery without indication Status: Acute OB - DS: Summary OB Procedures : None OB Procedures Intrapartum: OB Procedures: : None Peripartum Data Procedures: Procedures Operation Date: 05/01/24 00:40 Actual Procedure Side Surgeon p Section Shar Shepherd MD Time Spent with Patient Time attestation: Total time spent providing and/or coordinating discharge services: Discharge Plan Discharge Discharging Clinician: Shar Shepherd Patient Disposition: Home, Self-Care Activity: pelvic rest Diet: regular Patient Instructions: Antibiotic Form Stand Alone Forms: General Discharge Information Follow-up/Referrals: Shar Shepherd MD [Physician] - Discharge Medications: New oxycodone-acetaminophen 5-325 mg tablet 1 tablet PO Q4H PRN (Reason: pain) Qty: 25 0RF Continued Cranberry Gummies Patient Comments: has not started yet. metoclopramide HCl [Reglan] 10 mg tablet 10 mg PO Q6H PRN (Reason: nausea and vomiting) Qty: 15 0RF albuterol sulfate 90 mcg/actuation Hfa Aerosol Inhaler 2 puff INHALATION QID PRN (Reason: Wheezing) methadone Rx Instructions: Methadone 125mg in AM and then Methadone 145 mg in afternoon Date of admission: 04/30/24 21:54 Primary Care Provider: UNKNOWN,DOCTOR Admitting Provider: Shar Shepherd Attending physician on admission: Shar Shepherd Condition: Stable
--- NOTE | 2024-05-02 10:00 | PC.NURSE ---
Patient requested a breast pump for home use. She has not applied for one through her insurance in the past year. She chose a Zomee pump and has the [facility] medical information if she needs any additional supplies. Patient has the mom and baby guide for reference. Primary RN aware.
[2024-05-02] MEDS: HYDROcodone/acetaminophen (*CRX) 10-325 MG TABLET 1 TAB PO (10:10)
--- NOTE | 2024-05-02 11:18 | PC.NURSE ---
This RN realized that patient did not have labs drawn before discharge. Dr. Shepherd informed. No further orders.
== END 2024-05-02 10:40 | disposition home or self-care (01) | DRG 540 ==
LOC: ANHLDR 05-01 00:35 → ANHOB2 05-01 05:26
PROVIDERS: Admitting Provider Obstetrics & Gynecology; Visit Provider Obstetrics & Gynecology
PROC: 10D00Z1 Extraction of Products of Conception, Low, Open Approach (ICD-10-PCS; CPT 59514; principal; 2024-05-01 00:40)
DX: O60.14X0 Preterm labor third trimester with preterm delivery third trimester, not applicable or unspecified (principal); Z37.0 Single live birth; Z3A.35 35 weeks gestation of pregnancy; O32.1XX0 Maternal care for breech presentation, not applicable or unspecified
CPT/HCPCS: 36415; 85025; 86592; 86703; 86850; 86900; 86901; A9270; G0432; J1885; J2270; J2274; J2371; J2405; J2590; J7120

== ENCOUNTER 2024-06-30 13:44 | Outpatient (CLI) | payer OTHER, SELFPAY ==
[2024-07-07 17:09] LABS: Reference Lab Test Name Methadone Qnt
[2024-07-07 17:10] LABS: Reference Lab Test Result 2000
== END 2024-06-30 13:45 | disposition home or self-care (01) ==
DX: F11.20 Opioid dependence, uncomplicated (principal)
CPT/HCPCS: 36415; 80358; 99202; G0463; G0480

== ENCOUNTER 2024-08-09 09:32 | Outpatient (CLI) | payer OTHER, SELFPAY | END 2024-08-09 09:33 | disposition home or self-care (01) | DX: F11.20 Opioid dependence, uncomplicated (principal) | CPT/HCPCS: 36415; 99212; G0463 ==

== ENCOUNTER 2024-10-11 14:58 | Outpatient (CLI) | payer OTHER, SELFPAY | END 2024-10-11 14:59 | disposition home or self-care (01) | DX: F11.20 Opioid dependence, uncomplicated (principal) | CPT/HCPCS: 36415; 80358; 99212; G0463; G0480 ==

== ENCOUNTER 2025-07-25 10:44 | Emergency (ER) | payer OTHER, SELFPAY ==
[2025-07-25 10:54] VITALS: BP 138/107; PULSE 82; RESP 18; TEMP 36.3; O2SAT 100
--- NOTE | 2025-07-25 11:17 | ED.WOUNDLAC ---
HPI - Wound/Laceration General Chief Complaint: Wound/Laceration Stated Complaint: cut on left hand finger Time Seen by Provider: 07/25/25 11:01 Source: patient and RN notes reviewed Mode of arrival: ambulatory Limitations: no limitations History of Present Illness HPI narrative: Patient presents today with a laceration to her left 2nd finger that was sustained this morning at 5:00 a.m. at home. She was opening up a dog call or and accidentally stabbed herself with a knife. She came in today because she has been unable to get the bleeding to stop. She is up-to-date on her tetanus vaccine. Denies numbness or tingling. Related Data Home Medications ?Medication ?Instructions ?Recorded ?Confirmed ?Last Taken ?Type methadone 04/29/24 04/29/24 09:30 History Allergies Allergy/AdvReac Type Severity Reaction Status Date / Time No Known Allergies Allergy Verified 07/25/25 10:57 PMFSH Past Medical History Medical History and not yet delivered History of pre-eclampsia in prior , currently Bipolar 1 disorder Methadone dependence Hx of opioid abuse Anemia IV drug user methamphetamines Sleep disorder Drug dependence Nausea & vomiting GERD (gastroesophageal reflux disease) High cholesterol Asthma Bleeding gums Headache Depression Anxiety Bipolar disorder Surgical History Surgical History No pertinent past surgical history Family History Family History Grandparent Arthritis Diabetes mellitus Nerve disorder Mother Nerve disorder Accidental fentanyl overdose she from overdose Social History Social History Social History: Uses methamphetamine and fentanyl. She has 1 daughter which is being raised by the other grandmother. Lives with friends. [facility] also states that she smokes marijuana every day. She continues to smoke a pack a cigarettes a day. She is a full code she does not have a durable power commercial real estate attorney for healthcare. Smoking packs per day: 1 Smoking cigarettes per day: 20.0 Years smoked: 10 Smoking pack-years: 10.00 Smoking status: Current every day smoker Tobacco type: cigarettes Second hand tobacco smoke exposure: Yes Alcohol intake: current Drinks per week: 1 Alcohol use details: Socially Substance use: former Substance use type: marijuana, amphetamines and opiates Other substance usage details: fentanyl Last use: 6 months ago, currently on methadone program Do You Feel Safe in your Home?: Yes Lack of Transportation: No Lack of Food: Sometimes True Current Housing: I Have Housing Concerned About Future Housing: No Difficulty Paying Gas/Electric Bills: No Difficulty Paying for Meds: No Currently Unemployed: No Education: High School Diploma/GED Difficulty w/ Childcare or Family Care: No Gender identity (if verbalized by the patient): Female Sexual Orientation (if Verbalized by the Patient): Straight or Heterosexual Spiritual care concerns: No Comments At time of signature, I have reviewed and agree with nursing past medical, surgical, social and family history unless otherwise noted. Please see nursing chart for further information. There is no relevant family history pertinent to the presenting complaint Exam Narrative: GENERAL: Well-appearing, well-nourished, and in no acute distress. HEAD: Normocephalic, atraumatic. EYES: EOMI. No redness or drainage. Conjunctivae normal. ENT: Mucous membranes pink and moist. NECK: Normal AROM. CHEST: No respiratory distress. EXTREMITIES: Left 2nd finger: 1.5 cm partial-thickness linear laceration to the lateral proximal phalanx with no active bleeding. Distal sensation intact. Capillary refill normal. Full AROM. SKIN: Warm, dry, no rash. Capillary refill normal. Normal skin turgor. NEURO: No focal deficits. Alert and oriented x3. Gait steady. PSYCH: Normal affect. No signs of depression or anxiety. Course Course Level of Care: Express Care Visit Vital Signs Vital signs: Vital Signs Temperature 97.3 F L 07/25/25 10:54 Pulse Rate 82 07/25/25 10:54 Respiratory Rate 18 07/25/25 10:54 Blood Pressure 138/107 H 07/25/25 10:54 Pulse Oximetry 100 07/25/25 10:54 Oxygen Delivery Room Air 07/25/25 10:54 Temperature 97.3 F L 07/25/25 10:54 Pulse Rate 82 07/25/25 10:54 Respiratory Rate 18 07/25/25 10:54 Blood Pressure 138/107 H 07/25/25 10:54 Pulse Oximetry 100 07/25/25 10:54 Oxygen Delivery Room Air 07/25/25 10:54 Reviewed Procedures Laceration Laceration 1: Date: 07/25/25 Time: 11:20 Site: hand (left 2nd finger) Side (If applicable): left Size (cm): 1.5 Description: linear Depth: simple, single layer Local Anesthetic: none Pre-repair: wound explored and irrigated ====== Skin Level ====== Skin layer closed with: dermabond ====== Subcutaneous Layer ====== ====== Muscle Layer ====== ====== Tendon Layer ====== MDM - Wound/Laceration MDM Narrative Medical decision making narrative: Patient presents today with a laceration to her left 2nd finger that was sustained this morning at 5:00 a.m. at home. She was opening up a dog call or and accidentally stabbed herself with a knife. She came in today because she has been unable to get the bleeding to stop. She is up-to-date on her tetanus vaccine. Upon exam, patient has 1.5 cm partial-thickness linear laceration to the left 2nd finger proximal phalanx. Neurovascularly intact. Laceration was repaired with some skin adhesive. Care instructions given. Vital signs stable. Anticipatory guidance given. Differential Diagnosis Differential diagnosis: Likely laceration and avulsion of skin Critical Care Time Critical Care Time Critical Care Time: No Discharge Plan Discharge Clinical Impression: Laceration of left index finger Qualifiers: Encounter type: initial encounter Damage to nail status: without damage Foreign body presence: without foreign body Qualified Code(s): S61.211A - Laceration without foreign body of left index finger without damage to nail, initial encounter Patient Disposition: Home Condition: Stable Instructions: Finger Laceration (ED), Skin Adhesive Care (ED) Additional Instructions: Your wound has been repaired with skin glue. This will fall off on its own in approximately 1 week. Try not to pick at the glue. You do not need to wash the area. Wash your hands is fine. Do not submerge your hand in standing water such as sinks, pools, hot tubs, until the glue falls off and the wound has scabbed or healed. Monitor for any signs of infection such as redness, swelling, increased pain, or drainage, and see your doctor if you note any. Take Tylenol or ibuprofen for pain, if able. Patient Language: Latvian Prescriptions: No Action methadone Rx Instructions: Methadone 125mg in AM and then Methadone 145 mg in afternoon Follow-up/Referrals: PHYSICIAN,DIRECTOR CHECK [Primary Care Provider, Internal Medicine] Stand Alone Forms: Work/School Release IP Time of Disposition: 11:17
[2025-07-25 11:25] VITALS: BP 136/90
== END 2025-07-25 11:26 | disposition home or self-care (01) ==
PROVIDERS: Emergency Provider Nurse Practitioner
DX: S61.211A Laceration without foreign body of left index finger without damage to nail, initial encounter (principal); W26.0XXA Contact with knife, initial encounter; F17.210 Nicotine dependence, cigarettes, uncomplicated; K21.9 Gastro-esophageal reflux disease without esophagitis; E78.00 Pure hypercholesterolemia, unspecified; J45.909 Unspecified asthma, uncomplicated
CPT/HCPCS: 12001; 99212; G0463

== ENCOUNTER 2025-08-17 18:31 | Emergency (ER) | payer OTHER, SELFPAY ==
--- NOTE | 2025-08-17 18:34 | ED_ITS ---
HPI - Wound/Laceration General Chief Complaint: Wound/Laceration Stated Complaint: Left Foot Laceration Time Seen by Provider: 08/17/25 18:41 Source: patient, RN notes reviewed and old records reviewed Mode of arrival: ambulatory Limitations: no limitations History of Present Illness HPI narrative: patient is concern for a laceration to the left plantar aspect of foot. Patient states that she was walking late Wednesday night early morning when she tripped and cut the bottom of her foot on a dog crate. Partial avulsion noted. No bleeding noted. Last Tdap was April of 2023. Related Data Home Medications ?Medication ?Instructions ?Recorded ?Confirmed ?Last Taken ?Type methadone 04/29/24 04/29/24 09:30 Hi story Allergies Allergy/AdvReac Type Severity Reaction Status Date / Time No Known Allergies Allergy Verified 08/17/25 18:46 Review of Systems 2 Review of Systems: All systems reviewed & are unremarkable except as noted in HPI and below Constitutional: Constitutional: Reports no additional constitutional complaints ENT: Reports system reviewed and no additional complaints, except as documented Cardiovascular: Cardiovascular: Reports no additional cardiovascular complaints, Denies chest pain and Denies dyspnea Respiratory: Respiratory: Reports no additional respiratory complaints, Denies chest congestion, Denies cough and Denies dyspnea Musculoskeletal: Musculoskeletal: Reports as per HPI Integumentary/Breasts: Skin/Breast: Reports as per HPI PMFSH Past Medical History Medical History and not yet delivered History of pre-eclampsia in prior , currently Bipolar 1 disorder Methadone dependence Hx of opioid abuse Anemia IV drug user methamphetamines Sleep disorder Drug dependence Nausea & vomiting GERD (gastroesophageal reflux disease) High cholesterol Asthma Bleeding gums Headache Depression Anxiety Bipolar disorder Surgical History Surgical History No pertinent past surgical history Family History Family History Grandparent Arthritis Diabetes mellitus Nerve disorder Mother Nerve disorder Accidental fentanyl overdose she from overdose Social History Social History Social History: Uses methamphetamine and fentanyl. She has 1 daughter which is being raised by the other grandmother. Lives with friends. SShe also states that she smokes marijuana every day. She continues to smoke a pack a cigarettes a day. She is a full code she does not have a durable power securities attorney for healthcare. Smoking packs per day: 1 Smoking cigarettes per day: 20.0 Years smoked: 10 Smoking pack-years: 10.00 Smoking status: Current every day smoker Tobacco type: cigarettes Second hand tobacco smoke exposure: Yes Alcohol intake: current Drinks per week: 1 Alcohol use details: Socially Substance use: former Substance use type: marijuana, amphetamines and opiates Other substance usage details: fentanyl Last use: 6 months ago, currently on methadone program Do You Feel Safe in your Home?: Yes Lack of Transportation: No Lack of Food: Sometimes True Current Housing: I Have Housing Concerned About Future Housing: No Difficulty Paying Gas/Electric Bills: No Difficulty Paying for Meds: No Currently Unemployed: No Education: High School Diploma/GED Difficulty w/ Childcare or Family Care: No Gender identity (if verbalized by the patient): Female Sexual Orientation (if Verbalized by the Patient): Straight or Heterosexual Spiritual care concerns: No Comments At the time of my signature, I reviewed and agree with the nursing past medical, surgical, social, and family history. There is no relevant family history pertinent to the patient complaint. Exam 2 Const: General: cooperative, healthy appearing, comfortable, no acute distress, well developed, alert, poor hygiene and well nourished Nutritional Appearance: well nourished and obese Orientation/consciousness: patient oriented x3 Limitations: no limitations HENMT: Head: normal to inspection Eyes: General: appearance normal, both eyes and all related structures A lignment and Position: alignment normal Neck: Neck: normal visual inspection, full ROM, no lymphadenopathy and no meningeal signs Chest: Chest palpation & inspection: normal inspection of the chest Resp: Effort & Inspection: normal respiratory effort and able to speak in complete sentences Cardio: Rate: regular rate Skin: General skin exam: normal color and no rashes or lesions noted Neuro: General: patient oriented x3, gait normal, moves all extremities and no meningeal signs Cognition (Neuro): normal cognition Speech: normal speech Gait exam (Neuro): Normal gait present Extrem: General: normal to inspection, full ROM, capillary refill normal and normal gait Ankle/foot/toe images: 1. Partial avulsion of skin. No signs of infection. No bleeding. No swelling, tenderness palpation. No foreign bodies noted Psych: Appearance: grossly normal and well kempt Mental Status: mental status grossly normal Speech and movement: Normal speech and movement present and Clear speech present Affect: normal affect Attitude: cooperative Course Course Level of Care: Express Care Visit Vital Signs Vital signs: Vital Signs Temperature 98.9 F 08/17/25 18:40 Pulse Rate 106 H 08/17/25 18:40 Respiratory Rate 18 08/17/25 18:40 Blood Pressure 154/96 H 08/17/25 18:40 Pulse Oximetry 100 08/17/25 18:40 Oxygen Delivery Room Air 08/17/25 18:40 Temperature 98.9 F 08/17/25 18:40 Pulse Rate 106 H 08/17/25 18:40 Respiratory Rate 18 08/17/25 18:40 Blood Pressure 154/96 H 08/17/25 18:40 Pulse Oximetry 100 08/17/25 18:40 Oxygen Delivery Room Air 08/17/25 18:40 Reviewed MDM - Wound/Laceration MDM Narrative Medical decision making narrative: patient sitting in exam room. Patient is nontoxic except for blood pressure is elevated. Patient reports injuring her foot almost 2 days ago. Will cover with an antibiotic. Patient is up-to-date on teta nus. Patient appropriate for outpatient treatment with close follow-up Discharge instructions reviewed with patient, as well as provided in writing per nursing staff. The instructions also include specific and strict return/GO TO THE ER as well as f/u information. All questions have been answered, and the patient deny any further questions with discharge and discharge plan. Some parts of this dictation were generated by voice recognition software and may contain typographical and/or grammatical inaccuracies. Critical Care Time Critical Care Time Critical Care Time: No Discharge Plan Discharge Clinical Impression: Avulsion of skin of foot Patient Disposition: Home Condition: Stable Instructions: Antibiotic Form, Skin Avulsion (ED) Additional Instructions: soak twice a day in warm soapy water with Epson salt for 15-20 minutes. Take antibiotic as prescribed today your blood pressure was 154/96. Please follow-up with primary care provider to have this rechecked within 2 weeks. Patient Language: Bulgarian Prescriptions: New cephalexin 500 mg capsule 500 mg PO Q8H 7 Days Qty: 21 0RF No Action methadone Rx Instructions: Methadone 125mg in AM and then Methadone 145 mg in afternoon Follow-up/Referrals: UNKNOWN,DOCTOR [Non-Staff] Stand Alone Forms: Work/School Release IP Time of Disposition: 19:10
[2025-08-17 18:40] VITALS: BP 154/96; PULSE 106; RESP 18; TEMP 37.2; O2SAT 100
== END 2025-08-17 19:21 | disposition home or self-care (01) ==
PROVIDERS: Emergency Provider Nurse Practitioner
DX: S91.302A Unspecified open wound, left foot, initial encounter (principal); W22.8XXA Striking against or struck by other objects, initial encounter; F17.210 Nicotine dependence, cigarettes, uncomplicated; K21.9 Gastro-esophageal reflux disease without esophagitis; E78.00 Pure hypercholesterolemia, unspecified; J45.909 Unspecified asthma, uncomplicated
CPT/HCPCS: 99213; G0463